=== PATIENT | male | born 1945 | race Caucasian/White ===

== ENCOUNTER → 2019-12-30 14:57 | Outpatient (BNVA) | payer MEDICARE, MEDICAID, SELFPAY | PROVIDERS: Family Provider Nurse Practitioner Family; PCP Nurse Practitioner Family; Visit Provider Nurse Practitioner Family | DX: I10 Essential (primary) hypertension (principal); E78.2 Mixed hyperlipidemia; E11.9 Type 2 diabetes mellitus without complications; R41.3 Other amnesia | CPT/HCPCS: 80048; 82550; 83036; 84460 ==

== ENCOUNTER 2020-02-03 10:55 | Outpatient (CLI) | payer MEDICARE, MEDICAID, SELFPAY ==
--- NOTE | 2020-02-03 11:27 | USCV_ITS ---
Triston Evans Age: 74 Gender: M : 1945 Exam Date: 02/03/2020 11:32 Ordering Phys: Eulalia Murray TERMINAL COMPUTER OPERATOR-C TERMINAL COMPUTER OPERATOR Technologist: Pam Mann [place] [facility] [place]: PAIN IN RT FOOT RIGHT LEFT Brachial 172.00 mmHg Brachial 173.00 mmHg Pressure (mmHg) Waveform Pressure (mmHg) Waveform 127.00 Above Knee 22.00 Below Knee 0.00 GERIATRICIAN 74.00 DPA 0.43 Ankle/Brachial Index 14.00 Pre-Exercise Toe Pressure 0.08 Pre-Exercise Toe/Brachial Index FINDINGS Severely diminished resting SHIRA on the right side Markedly diminished resting TBI on the right side No flow signals in the posterior artery PVR waveforms showing low amplitude delayed peaking waves at the below-knee and ankle levels CONCLUSIONS Features of severe peripheral artery disease with total occlusion of the posterior tibial artery on the right side. Markedly diminished flow into the right big toe Dr Mariia Martinez MD [facility] (Electronically Signed) Final Date: 03 February 2020 13:47 S
--- NOTE | 2020-02-03 12:16 | USCV_ITS ---
Triston Evans Age: 74 Gender: M : 1945 Exam Date: 02/03/2020 12:16 Ordering Phys: Mariia Martinez MD Technologist: [place] [facility] [place]: [place]IN IN RIGHT FOOT Risk Factors: Previous Vascular Surgery: RIGHT LEFT Waveform Velocity (cm/s) Velocity (cm/s) Waveform Triphasic 68.8 Iliac Prox Triphasic Iliac Mid 79.4 Triphasic 73.1 Iliac Distal Triphasic 44.8 PURCHASING SUPERVISOR Triphasic 48.7 SFA Prox Monophasic 45.3 SFA Mid Monophasic 19.5 SFA Dist Monophasic 18.4 DPA FINDINGS Moderate diffuse plaques in the iliac and femoral artery. Sluggish flow in the distal superficial femoral artery No Doppler flow signals in the popliteal and posterior tibial artery Continues low velocity waveform in the dorsalis pedis artery CONCLUSIONS Features of total occlusion of the popliteal and posterior tibial artery on the right side. Features of collateral filling of the dorsalis pedis artery on the right side Moderate diffuse plaques in the iliac and femoral artery Dr. Amor was informed about this finding Dr Mariia Martinez MD [facility] (Electronically Signed) Final Date: 03 February 2020 13:42 S
== END 2020-02-03 10:56 | disposition home or self-care (01) ==
PROVIDERS: Family Provider Nurse Practitioner Family; PCP Nurse Practitioner Family; Visit Provider Nurse Practitioner Family
DX: I70.291 Other atherosclerosis of native arteries of extremities, right leg (principal); M79.671 Pain in right foot; I70.8 Atherosclerosis of other arteries
CPT/HCPCS: 93922; 93923; 93926

== ENCOUNTER 2020-02-03 12:30 | Inpatient (IN) | payer MEDICARE, MEDICAID, SELFPAY ==
[2020-02-03] VITALS (10 sets, daily range): BP systolic 139–176; BP diastolic 82–100; PULSE 75–104; RESP 17–19; TEMP 36.6–36.7; O2SAT 96–100; BMI 26.6
--- NOTE | 2020-02-03 12:44 | ED_ITS ---
Entered by Allison Castellanos, acting as scribe for Matthew Amor DO HPI - Extremity Problem General: Chief complaint: Extremity Problem,Nontraumatic Stated complaint: r lower extremity aterial occulusion per dr martinez Time Seen by Provider: 02/03/20 13:01 Source: patient Mode of arrival: ambulatory Limitations: physical limitation (walking due to pain) History of Present Illness: HPI Narrative: 84-year-old male presents emergency room with complaint of a painful cold right lower leg. He has had this for several weeks to months now is worse with activity better with rest now is just become continuously painful. He was sent by his nurse practitioner to [facility] [place] a arterial Doppler this showed occlusion of the popliteal and tibial arteries and he was referred to the emergency room. MD Complaint: extremity pain (R foot- redness and tenderness) Onset (ago): month(s) (2 months ago) Pain Consistency: constant Location: right Associated symptoms: Deny chest pain, fever(s) or rash Review of Systems Const: Denies: fever, chills, body aches, change in appetite, fatigue or malaise ENMT: Denies: throat pain, ear pain, nasal discharge or nasal congestion Card: Reports: leg pain with exertion; Denies: chest pain, edema, shortness of breath on exertion or shortness of breath when lying down Resp: Denies: shortness of breath, productive cough or non-productive cough GI: Denies: abdominal pain, nausea, vomiting, vomiting blood, coffee grounds in vomit, diarrhea, constipation, bloating, blood in stool or black tarry stool : Denies: flank pain, painful urination, urinary frequency or urinary urgency Skin/Breast: Denies: rash or itching PFS ED PFSH: Medical History HTN (hypertension), benign Hyperlipemia, mixed Peripheral arterial disease Tobacco abuse, in remission Type 2 diabetes mellitus, without long-term current use of insulin Surgical History History of heart artery stent Social History Smoking and tobacco status: never smoked Current occupation: disabled Physical Exam Const: COMMON NORMALS: no apparent distress GENERAL APPEARANCE: cooperative and comfortable ORIENTATION/CONSCIOUSNESS: Yes awake, Yes oriented to person, Yes oriented to place and Yes oriented to time HENMT: COMMON NORMALS: normocephalic, head/scalp atraumatic, hearing grossly normal bilaterally, external ears normal, EAC's normal, TM's normal bilaterally, nasal mucous membranes and turbinates normal, moist oral mucous membranes and oropharynx normal HEAD & SCALP: normocephalic and atraumatic NOSE: nasal mucous membranes and turbinates normal EXTERNAL EAR: Yes external ears normal EXTERNAL AUDITORY CANAL: EAC's normal TYMPANIC MEMBRANE: TM's normal bilaterally Eye: COMMON NORMALS: PERRL, EOMs intact bilaterally, conjunctivae normal and no scleral icterus CONJUNCTIVA: Yes conjunctivae normal PUPIL: Yes PERRL Neck/C-Spine: COMMON NORMALS: full ROM, no lymphadenopathy, supple and no JVD Lymph: LYMPHATIC: no lymphadenopathy noted and no lymphedema noted Resp: COMMON NORMALS: normal respiratory effort, no retractions, no use of accessory muscles and clear to auscultation bilaterally AUSCULTATION: clear to auscultation bilaterally Cardio: COMMON NORMALS: no JVD, regular rate, regular rhythm and no murmurs RATE: regular rate RHYTHM: regular rhythm GI: COMMON NORMALS: soft to palpation and no hepatosplenomegaly AUSCULT ATION: Yes normoactive bowel sounds PALPATION: Yes soft, No tender, No guarding and Yes no hepatosplenomegaly Extremity: OTHER: No palpable dorsalis pedis pulse or posterior tibialis pulse on the right foot it is erythematous extremely tender to the touch with mild calf pain as well there is poor capillary refill. Neuro: SENSORIUM/ORIENTATION: Yes oriented to person, Yes oriented to place and Yes oriented to time Skin: COMMON NORMALS: no rashes or lesions noted GENERAL SKIN EXAM: no rashes or lesions noted Course ED course: Lizy with Dr. Ureña of the hospitalist. We will go ahead and heparinize him admit him to the hospital initially patient did not want to stay Dr. Terence Kahn suggested that he be referred to [place] because this may be quite complicated patient refuses. However he did consent to staying here he would prefer to have Dr. Pratt and Dr. Bowie evaluated. Admit to the hospitalist consult Terence Vital Signs: Vital signs: Vital Signs Temperature 97.9 F 02/03/20 12:36 Pulse Rate 88 02/03/20 16:58 Respiratory Rate 18 02/03/20 16:58 Blood Pressure 155/93 02/03/20 16:58 Pulse Oximetry 99 02/03/20 16:58 MDM - Extremity (Nontraumatic) Lab Data: Labs: Lab Results 02/03/20 02/03/20 02/03/20 Range/Units 14:08 14:08 14:08 WBC 11.5 H (4.0-10.0) 10^3/ uL RBC 4.86 (4.1-5.3) 10^6/u L Hgb 14.3 (11.7-16.6) g/dL Hct 42.2 (42.0-52.0) % MCV 86.8 (80-94) fL MCH 29.4 (28.0-34.0) pg MCHC 33.9 (30.0-36.0) g/dL RDW 12.4 (12.1-15.1) % Plt Count 299 (130-400) 10^3/c mm MPV 10.5 H (7.4-10.4) fL Neut % (Auto) 69.8 % Lymph % (Auto) 18.1 % Kings % (Auto) 9.8 % Eos % (Auto) 1.3 % Baso % (Auto) 0.7 % Neut # (Auto) 8.0 H (1.8-7.7) 10^3/u L Lymph # (Auto) 2.1 (0.8-4.8) 10^3/u L Kings # (Auto) 1.1 H (0.2-0.9) 10^3/u L Eos # (Auto) 0.2 (0.0-0.8) 10^3/u L Baso # (Auto) 0.1 (0.0-0.1) 10^3/u L Nucleated RBC % (a uto) 0 % Nucleated RBCs # 0.0 /100WBC PT 13.80 H (10.5-13.3) SECO NDS INR 1.03 (0.8-1.2) APTT 27.4 (23.9-36.7) SECO NDS Sodium 139 (136-145) mmol/L Potassium 4.7 (3.5-5.1) mmol/L Chloride 98 (98-107) mmol/L Carbon Dioxide 29 (22-29) mmol/L Anion Gap 16.7 (5-19) BUN 15 (8-23) mg/dL Creatinine 0.8 (0.7-1.2) mg/dL Glucose 128 H (65-115) mg/dL Calcium 9.9 (8.5-10.5) mg/dL Total Bilirubin 0.5 (0.15-1.2) mg/dL AST 15 (0-40) U/L ALT 9 (0-41) U/L Alkaline Phosphata se 122 (40-130) IU/L Creatine Kinase 25 L (39-308) U/L Total Protein 7.4 (6.6-8.7) g/dL Albumin 4.4 (3.5-5.2) g/dL Globulin 3.0 (1.3-4.6) g/dL Imaging Data^: US: Radiologist's impression: [place] [address] Ultrasound Report Signed Patient: Moreno Evans #: [id number] : 1945cct#:[id number] Age/Sex: 74 / MADM Date: 02/03/20 Loc: RADRoom/Bed: Attending Dr: Eulalia Murray PROVIDER RELATIONS COORDINATOR Ordering Provider/Ordering MD: Mariia Martinez MD Date of Service: 02/03/20 Procedure(s): [place] [address] Accession Number(s): [id number] Report Number: [id number] Triston Evans Age: 74 Gender: M : 1945 Exam Date: 02/03/2020 12:16 Ordering Phys: Mariia Martinez MD Technologist: Exam Location: [facility] [place] Indication: PAIN IN RIGHT FOOT Risk Factors: Previous Vascular Surgery: RIGHT LEFT Waveform Velocity (cm/s) Velocity (cm/s) Waveform Triphasic 68.8 Iliac Prox Triphasic Iliac Mid 79.4 Triphasic 73.1 Iliac Distal Triphasic 44.8 FIRE BOSS Triphasic 48.7 SFA Prox Monophasic 45.3 SFA Mid Monophasic 19.5 SFA Dist Monophasic 18.4 DPA FINDINGS Moderate diffuse plaques in the iliac and femoral artery. Sluggish flow in the distal superficial femoral artery No Doppler flow signals in the popliteal and posterior tibial artery Continues low velocity waveform in the dorsalis pedis artery CONCLUSIONS Features of total occlusion of the popliteal and posterior tibial artery on the right side. Features of collateral filling of the dorsalis pedis artery on the right side Moderate diffuse plaques in the iliac and femoral artery Dr. Amor was informed about this finding Dr Mariia Martinez MD [facility] (Electronically Signed) Final Date: 03 February 2020 13:42 US Vascular: Radiologist's impression: [address] [place] [address] Ultrasound Report Signed Patient: Moreno Evans #: [id number] : 1945cct#:[id number] Age/Sex: 74 / MADM Date: 02/03/20 Loc: RADRoom/Bed: Attending Dr: Eulalia Murray PROVIDER RELATIONS COORDINATOR Ordering Provider/Ordering MD: Eulalia Murray Date of Service: 02/03/20 Procedure(s): [place] [address] Accession Number(s): [id number] Report Number: [id number] Triston Evans Age: 74 Gender: M : 1945 Exam Date: 02/03/2020 11:32 Ordering Phys: Eulalia Murray PROVIDER RELATIONS COORDINATOR Technologist: Pam Mann [place] [facility] [place]: PAIN IN RT FOOT RIGHT LEFT Brachial 172.00 mmHg Brachial 173.00 mmHg Pressure (mmHg) Waveform Pressure (mmHg) Waveform 127.00 Above Knee 22.00 Below Knee 0.00 LEAD MECHANIC 74.00 DPA 0.43 Ankle/Brachial Index 14.00 Pre-Exercise Toe Pressure 0.08 Pre-Exercise Toe/Brachial Index FINDINGS Severely diminished resting SHIRA on the right side Markedly diminished resting TBI on the right side No flow signals in the posterior artery PVR waveforms showing low amplitude delayed peaking waves at the below-knee and ankle levels CONCLUSIONS Features of severe peripheral artery disease with total occlusion of the posterior tibial artery on the right side. Markedly diminished flow into the right big toe Dr Mariia Martinez MD [facility] (Electronically Signed) Final Date: 03 February 2020 13:47 S Discharge Plan Discharge Patient Disposition: Admitted As Inpatient Admit Provider: Eliseo Dyer Clinical Impression: Critical ischemia of lower extremity, Peripheral arterial disease, History of heart artery stent, Type 2 diabetes mellitus, without long-term current use of insulin, HTN (hypertension), benign, Hyperlipemia, mixed, CAD (coronary artery disease) Condition: Stable Interventions: ED Discharge Assessment Last Done: 02/03/20 16:58 Discharge Date/Time: 02/03/20 17:10 Coding Level of Care Code ED Lamination Inspector for Chg Fwd The documentation recorded by the Emanuel kong Bridget Annette, accurately reflects the service I personally performed and the decisions made by [place] narvaez Curtis L, DO Feb 03, 2020 12:30
--- NOTE | 2020-02-03 13:49 | PC.NURSE ---
In room with pt, Dr Amor at bedside to discuss plan of care. Pt adamant that he is not going to stay in the hospital, that he has animals to take care of. Dr Amor discussing in length with pt the need for admission and angiogram. Pt refusing to stay at this time.
[2020-02-03 14:20] LABS: Basophils # 0.1 10^3/uL (0.0-0.1); Basophils % 0.7 %; Eosinophils # 0.2 10^3/uL (0.0-0.8); Eosinophils % 1.3 %; Hematocrit 42.2 % (42.0-52.0); Hemoglobin 14.3 g/dL (11.7-16.6); Lymphocytes # 2.1 10^3/uL (0.8-4.8); Lymphocytes % 18.1 %; Mean Corpuscular HGB Conc 33.9 g/dL (30.0-36.0); Mean Corpuscular Hemoglobin 29.4 pg (28.0-34.0); Mean Corpuscular Volume 86.8 fL (80-94); Mean Platelet Volume 10.5 fL (7.4-10.4); Monocytes # 1.1 10^3/uL (0.2-0.9); Monocytes % 9.8 %; Neutrophils % 69.8 %; Nucleated Red Blood Cells % 0 %; Platelet Count 299 10^3/cmm (130-400); Red Blood Count 4.86 10^6/uL (4.1-5.3); Red Cell Distribution Width 12.4 % (12.1-15.1); White Blood Count 11.5 10^3/uL (4.0-10.0)
[2020-02-03 14:30] LABS: INR 1.03 (0.8-1.2)
[2020-02-03 14:33] LABS: Partial Thromboplastin Time 27.4 SECONDS (23.9-36.7)
[2020-02-03 14:35] LABS: Alanine Aminotransferase 9 U/L (0-41); Albumin Level 4.4 g/dL (3.5-5.2); Alkaline Phosphatase 122 IU/L (40-130); Anion Gap 16.7 (5-19); Aspartate Amino Transferase 15 U/L (0-40); Blood Urea Nitrogen 15 mg/dL (8-23); Calcium 9.9 mg/dL (8.5-10.5); Carbon Dioxide 29 mmol/L (22-29); Chloride 98 mmol/L (98-107); Creatine Phosphokinase 25 U/L (39-308); Glucose 128 mg/dL (65-115); Potassium 4.7 mmol/L (3.5-5.1); Sodium 139 mmol/L (136-145); Total Bilirubin 0.5 mg/dL (0.15-1.2); Total Protein 7.4 g/dL (6.6-8.7)
[2020-02-03] MEDS: sodium chloride 0.9% 500 ML IV (14:41)
[2020-02-03] MEDS: heparin drip 25,000 UNIT/500 ML PREMIX 21.6 UNIT IV (14:42)
[2020-02-03] MEDS: heparin 5,000 unit/mL INJ 1 mL 5000 UNIT IV (14:43)
--- NOTE | 2020-02-03 15:23 | P.HP_ITS ---
Providers/Chief Complaint Primary Care Provider: TAHIR Joshi Chief Complaint: r lower extremity aterial occulusion per dr mendieta History of Present Illness Triston Evans is a very kind 74 year old male with a past medical history of CAD status post stenting x1, non--insulin-dependent type 2 diabetes mellitus, hypertension, hyperlipidemia, peripheral vascular disease who presents to the emergency room due to concerns for acute right lower limb ischemia. During my discussion with patient, he is quite teary, sad, as his recently 3 months ago from complications of smoking and COPD. Patient states that I am an old man, and by myself, I want you to save my leg. Patient states that he is here in the emergency room because he wants us to save his leg, patient states that he has a chronic history of peripheral vascular disease, his right lower extremity has been painful for the past 2 months, he has been told he has severe peripheral vascular disease on that side, he has been ambulating with significant pain, but states that over the past few weeks his right lower extremity specifically the distal phalanges have looked more red, are tender, no warmth, is able to move phalanges, but has loss of sensation on the right foot. Patient states his outpatient physician was treating him for possible ce llulitis, but antibiotics did not improve his symptoms. Patient states that he had a SHIRA studies today, and he was told by his primary care provider to come to the emergency room as he has concerns for acute limb ischemia. Patient states that his diabetes is pretty well controlled, his blood sugars are anywhere between the 150s, no blood sugar in the 500, states that his blood pressures pretty well controlled at home, has a history of CAD status post stenting x1, denies any chest pain, denies any lung disease, no history of smoking, no chest palpitations, no falls, no injuries, no history of strokes, no history of carotid artery disease. No lightheadedness, no dizziness, no focal neurologic deficits Review of Systems Const: Denies: fever, chills, fatigue or malaise Eyes: Denies: change in vision or blurry vision ENMT: Denies: nasal congestion Resp: Denies: shortness of breath, productive cough, non-productive cough or wheezing GI: Denies: abdominal pain, nausea, vomiting, vomiting blood, diarrhea, constipation, blood in stool or black tarry stool : Denies: flank pain, difficulty urinating, painful urination or urinary frequency Musc: Denies: neck pain or back pain Skin/Breast: Denies: rash Neuro: Denies: headache, dizziness or vertigo Psych: Denies: anxiety or depression Endo: Denies: excessive urination or excessive thirst Medications/Allergies Home Medications Medication Instructions Recorded Confirmed Last Taken Type Fish Oil 1 cap PO DAILY 02/03/20 02/03/20 02/02/20 History vitamin E 1 cap PO DAILY 02/03/20 02/03/20 02/02/20 History Allergies Allergy/AdvReac Type Severity Reaction Status Date / Time No Known Allergies Allergy Verified 02/03/20 12:40 Additional Medication Information Additional Medication Information: Lisinopril 30 twice daily Metformin 500 twice daily Metoprolol 50 twice daily Simvastatin 20 p.o. daily Tramadol 50 every 6 as needed PFSH Acute PFSH: Medical History (Updated 02/03/20 @ 15:31 by Eliseo Dyer MD) HTN (hypertension), benign Hyperlipemia, mixed Type 2 diabetes mellitus, without long-term current use of insulin Social History Smoking and tobacco status: never smoked Current occupation: disabled Vitals/I&O/Wt Last Vital Signs Temp 97.9 F 02/03/20 12:36 Pulse 91 02/03/20 14:48 Resp 18 02/03/20 14:48 BP 163/91 02/03/20 14:48 Pulse Ox 99 02/03/20 14:48 Weight last 48 hrs Weight 77.111 kg Physical Exam Const: COMMON NORMALS: no apparent distress and oriented x3 GENERAL APPE ARANCE: cooperative and comfortable HENMT: COMMON NORMALS: normocephalic HEAD & SCALP: normocephalic Eye: COMMON NORMALS: PERRL, EOMs intact bilaterally and no papilledema GENERAL EYE: normal appearance of both eyes PUPIL: Yes PERRL DIRECT OPHTHALMOSCOPY: Yes no papilledema Neck/C-Spine: COMMON NORMALS: full ROM, no lymphadenopathy, no JVD and thyroid normal THYROID: thyroid normal Lymph: LYMPHATIC: no lymphadenopathy noted Resp: COMMON NORMALS: normal respiratory effort, no retractions, no use of accessory muscles and clear to auscultation bilaterally AUSCULTATION: clear to auscultation bilaterally Cardio: COMMON NORMALS: no JVD, regular rate, regular rhythm, S1 normal heart sound, S2 normal heart sound, no gallops, no clicks and no murmurs RATE: regular rate RHYTHM: regular rhythm HEART SOUNDS: S1 normal and S2 normal GI: COMMON NORMALS: normal to inspection, nondistended, normoactive bowel sounds, soft to palpation, non-tender and no hepatosplenomegaly PALPATION: Yes soft and Yes no hepatosplenomegaly Extremity: COMMON NORMALS: normal to inspection and full ROM OTHER: Left lower extremity: Distal phalanges, red, erythematous, tender, no DP PT pulses palpable, loss of sensation of foot, pain with range of motion, poor capillary r efill Right lower extremity: Minimally palpable DP PT pulses, good sensation, no pain with range of motion, good capillary refill Neuro: COMMON NORMALS: oriented x3, CN's II-XII intact bilaterally, moves all extremities and no focal motor deficits Psych: COMMON NORMALS: mental status grossly normal, thought process normal and cooperative THOUGHT PROCESS: normal thought process Data : 02/03/20 14:08 02/03/20 14:08 A&P Assessment and plan (1) Critical ischemia of lower extremity: -Acute limb ischemia left lower extremity Plan: -Patient is kept n.p.o. -Heparin bolus, heparin drip -On statin -Cardiology has been consulted for angiographic intervention Status: Acute Code(s): I99.8 - Other disorder of circulatory system (2) CAD (coronary artery disease): Status post stenting x1 Status: Acute Code(s): I25.10 - Atherosclerotic heart disease of [place] coronary artery without angina pectoris (3) Hyperlipemia, mixed: Will check lipid panel, continue statin Status: Chronic Code(s): E78.2 - Mixed hyperlipidemia (4) Type 2 diabetes mellitus, without long-term current use of insulin: We will check hemoglobin A1c, low-dose sliding scale Status: Chronic Code(s): E11.9 - Type 2 diabetes mellitus without complications (5) HTN (hypertension), benign: Status: Chronic Code(s): I10 - Essential (primary) hypertension Attestations Medical Necessity Statement*: Patient requires hospitalization, inpatient, greater than 2 minutes, acute ischemia of left lower extremity Coding Level of Care Code Acute Admissions Director for [facility] Fwd Diagnoses Critical ischemia of lower extremity I99.8 CAD (coronary artery disease) I25.10 Hyperlipemia, mixed E78.2 Type 2 diabetes mellitus, without long-term current use of insulin E11.9 HTN (hypertension), benign I10
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
--- NOTE | 2020-02-03 16:42 | PC.NURSE ---
Dr Pratt evaluated pt at bedside. Per Dr Pratt, pt allowed to eat diet at this time.
[2020-02-03 18:03] LABS: Glucose Point of Care 118 mg/dL (70-110)
[2020-02-03] MEDS: metoprolol tartrate 50 mg Tablet PO (18:27)
[2020-02-03] MEDS: lisinopril 20 mg Tablet PO (18:27)
[2020-02-03] MEDS: sodium chloride 0.9% 1,000 ML 75 ML IV (18:27)
--- NOTE | 2020-02-03 19:50 | PC.NURSE ---
Bilateral feet Dopplered, pulses marked X2
[2020-02-03 20:15] LABS: Thyroid Stimulating Hormone 1.32 uIU/mL (0.27-4.20)
[2020-02-03 21:17] LABS: Partial Thromboplastin Time 59.7 SECONDS (23.9-36.7)
[2020-02-03 21:24] LABS: Glucose Point of Care 177 mg/dL (70-110)
[2020-02-04] VITALS (29 sets, daily range): BP systolic 117–180; BP diastolic 65–125; PULSE 71–99; RESP 6–23; TEMP 36.6–36.8; O2SAT 76–100
[2020-02-04 03:26] LABS: Basophils # 0.1 10^3/uL (0.0-0.1); Basophils % 0.5 %; Eosinophils # 0.2 10^3/uL (0.0-0.8); Eosinophils % 1.8 %; Hematocrit 38.3 % (42.0-52.0); Hemoglobin 13.1 g/dL (11.7-16.6); Lymphocytes # 2.2 10^3/uL (0.8-4.8); Lymphocytes % 21.2 %; Mean Corpuscular HGB Conc 34.2 g/dL (30.0-36.0); Mean Corpuscular Hemoglobin 29.6 pg (28.0-34.0); Mean Corpuscular Volume 86.5 fL (80-94); Mean Platelet Volume 10.9 fL (7.4-10.4); Monocytes # 1.1 10^3/uL (0.2-0.9); Monocytes % 10.3 %; Neutrophils # 6.7 10^3/uL (1.8-7.7); Nucleated Red Blood Cells % 0 %; Platelet Count 241 10^3/cmm (130-400); Red Blood Count 4.43 10^6/uL (4.1-5.3); Red Cell Distribution Width 12.3 % (12.1-15.1); White Blood Count 10.2 10^3/uL (4.0-10.0)
[2020-02-04 03:33] LABS: Alanine Aminotransferase 6 U/L (0-41); Albumin Level 3.5 g/dL (3.5-5.2); Alkaline Phosphatase 96 IU/L (40-130); Anion Gap 16.1 (5-19); Aspartate Amino Transferase 12 U/L (0-40); Blood Urea Nitrogen 13 mg/dL (8-23); Calcium 9.1 mg/dL (8.5-10.5); Carbon Dioxide 25 mmol/L (22-29); Chloride 100 mmol/L (98-107); Globulin 2.9 g/dL (1.3-4.6); Glucose 136 mg/dL (65-115); Magnesium 1.9 mg/dL (1.7-2.3); Osmolality Calculated 282 mOsm/kg (285-295); Phosphorus 4.1 mg/dL (2.5-4.5); Potassium 4.1 mmol/L (3.5-5.1); Sodium 137 mmol/L (136-145); Total Bilirubin 0.5 mg/dL (0.15-1.2); Total Protein 6.4 g/dL (6.6-8.7)
[2020-02-04 03:34] LABS: Chol HDL Ratio 3.57 mg/dL (1.0-5.00); Cholesterol 132 mg/dL (0-200); HDL Cholesterol 37 mg/dL (60-100); LDL Cholesterol Calculated 70 mg/dL (50-129); LDL HDL Ratio 1.89 RATIO (0.00-3.22); Triglycerides 127 mg/dL (0-150)
[2020-02-04 03:43] LABS: Estmated Average Glucose 117; Hemoglobin A1C 5.7 % (4.0-6.0)
[2020-02-04 04:02] LABS: Partial Thromboplastin Time 71.6 SECONDS (23.9-36.7)
[2020-02-04 04:49] LABS: INR 1.16 (0.8-1.2)
[2020-02-04 06:42] LABS: Glucose Point of Care 108 mg/dL (70-110)
--- NOTE | 2020-02-04 06:48 | P.PN_ITS ---
Subjective Subjective: Interval history: Triston has had an uneventful night. He remains on heparin. The redness, pain and mild swelling of his leg has decreased significantly. His right leg is warm today. He is slightly confused and has asked me 6 or 7 times from last night till this morning when were going to do the procedure. Medications: Reviewed: Yes Vitals/I&O/Wt Last Vital Signs Temp 98.3 F 02/04/20 04:00 Pulse 80 02/04/20 04:00 Resp 17 02/04/20 04:00 BP 180/71 02/04/20 04:00 Pulse Ox 96 02/04/20 04:00 02/03/20 02/03/20 02/04/20 14:59 22:59 06:59 Intake Total 500 / 500 Output Total 325 / 325 350 / 675 Balance 175 / 175 -350 / -175 Weight last 48 hrs Weight 170 lb Physical Exam Narrative: EXAM NARRATIVE: GENERAL: In general he is comfortable HEENT: Exam within normal limits. [] NECK: Supple without jugular vein distention. The carotid upstroke is normal without bruits. BACK: Exam normal. LUNGS: Clear. HEART: Regular rate and rhythm. ABDOMEN: Benign without organomegaly or tenderness. EXTREMITIES: No edema. NEUROLOGIC: Exam normal. SKIN: Unremarkable. The right leg is warm. No edema. The redness noted yester day has significantly diminished. Data : 02/04/20 03:00 02/04/20 03:00 Micro: Microbiology 02/03/20 17:30 Blood Culture - Preliminary Blood SPECIMEN COLLECTED 02/03/20 14:08 Blood Culture - Preliminary Blood SPECIMEN COLLECTED A&P Assessment and plan (1) History of heart artery stent: Status: Acute Code(s): Z95.5 - Presence of coronary angioplasty implant and graft (2) Peripheral arterial disease: Status: Acute Code(s): I73.9 - Peripheral vascular disease, unspecified (3) Critical ischemia of lower extremity: Status: Acute Code(s): I99.8 - Other disorder of circulatory system (4) CAD (coronary artery disease): Status: Acute Code(s): I25.10 - Atherosclerotic heart disease of [place] coronary artery without angina pectoris (5) Hyperlipemia, mixed: Status: Chronic Code(s): E78.2 - Mixed hyperlipidemia (6) Type 2 diabetes mellitus, without long-term current use of insulin: Status: Chronic Code(s): E11.9 - Type 2 diabetes mellitus without complications (7) HTN (hypertension), benign: Status: Chronic Code(s): I10 - Essential (primary) hypertension Additional A&P Information Heparin has improved the situation. We will stop the heparin at noon and perform lower extremity angiography around 1:00 this afternoon. I made him n.p.o. after breakfast this morning. Attestations Medical Necessity Statement*: Not applicable Coding Level of Care Code Established Pt Acute Typing Teacher for g Fwd Patient Type Established History Detailed Exam Detailed Medical Decision Making Moderate Complexity Diagnoses History of heart artery stent Z95.5 Peripheral arterial disease I73.9 Critical ischemia of lower extremity I99.8 CAD (coronary artery disease) I25.10 Hyperlipemia, mixed E78.2 Type 2 diabetes mellitus, without long-term current use of insulin E11.9 HTN (hypertension), benign I10
[2020-02-04] MEDS: atorvastatin 40 mg Tablet 80 MG PO (09:39)
[2020-02-04] MEDS: omega-3 fatty acids 1,000 mg Capsule 1000 MG PO (09:39)
[2020-02-04] MEDS: sodium chloride 0.9% 1,000 ML 50 ML IV (09:40)
[2020-02-04] MEDS: metoprolol tartrate 50 mg Tablet PO ×2 (09:40→18:38)
[2020-02-04] MEDS: lisinopril 20 mg Tablet PO ×2 (09:40→18:39)
[2020-02-04 09:51] LABS: Partial Thromboplastin Time 72.3 SECONDS (23.9-36.7)
[2020-02-04] MEDS: LORazepam 2 mg/mL INJ 1 mL 0.5 MG IVP ×2 (10:46→22:40)
[2020-02-04] MEDS: diphenhydrAMINE 50 mg Capsule PO (11:31)
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
--- NOTE | 2020-02-04 14:30 | SUR.PHASEI ---
RECOVERY NOTE Patient to CPRU room 4. Awaiting bed availability. Patient condition stable- See assessments per flowsheets.
--- NOTE | 2020-02-04 15:00 | SUR.PHASEI ---
TRANSFER Dr Samano/Dr Pratt in to discuss findings of the exam. Discussed need for surgery. Patient agreeable- patient transferred to ops for holding while awaiting surgical procedure. Report to Johnna KEENAN.
--- NOTE | 2020-02-04 15:09 | P.CONIM_ITS ---
Providers/Reason For Consult Consulting Physican/Specialty*: Jamir Reason for Consult*: Ischemia right lower extremity with thrombus burden right popliteal artery, status post percutaneous intervention with clot aspiration and angioplasty Requesting Physcian: Dr. Pratt Attending Physician: Eliseo Dyer MD Primary Care Provider: TAHIR Joshi History of Present Illness History of Present Illness Triston Evans is a 74 year old male who is just completed percutaneous angiography with intervention to include PTCA and penumbra thrombus aspiration from the right mid and distal SFA and popliteal region by Dr. Pratt. There was substantial thrombus burden that cannot be completely relieved to the percutaneous device and Dr. Pratt has asked for our considerations for surgical thrombectomy for what he feels is still a substantial amount of thrombus. Patient is in the recovery area of the cardiac Steam Pan Sponger. His biggest complaint is left groin pain where there is a left femoral sheath still in position. He does appear to be a bit confused and has received some sedative. Dr. Pratt does have some concerns of perhaps progressing dementia. I do note upon review of the patient's primary care provider visits dating back to December that he initially presented with a granddaughter who was concerned about the patient developing progressive memory loss. He has recently lost his about 3 months ago and does appear to be having more confusion as well as some depression. He is complained of right lower extremity pain for the past 2 months, more progressive recently. He has ahistory for coronary artery disease and status post coronary stenting. There are no immediate family members available. There is no one listed in his record as having power of transactional attorney. Dr. Pratt and I feel that this should be an expedited procedure, and after discussion with Mr. Evans, he has given verbal agreement. Review of Systems Card: Reports: leg pain with exertion (Progressive right lower extremity pain, mostly involving the foot for the past 2 months) Resp: Denies: shortness of breath GI: Denies: abdominal pain, nausea or vomiting Neuro: Denies: headache Psych: Reports: depression Meds/Allergies Home Medications and Allergies Home Medications Medication Instructions Recorded Confirmed Type lisinopril 30 mg tablet 30 mg PO BID tab 12/30/19 02/03/20 History metformin 500 mg tablet 500 mg PO BID 12/30/19 02/03/20 History metoprolol tartrate 50 mg tablet 50 mg PO BID 12/30/19 02/03/20 History simvastatin 20 mg tablet 20 mg PO QDAY 12/30/19 02/03/20 History Fish Oil 1 cap PO DAILY 02/03/20 02/03/20 History vitamin E 1 cap PO DAILY 02/03/20 02/03/20 History Allergies Allergy/AdvReac Type Severity Reaction Status Date / Time No Known Allergies Allergy Verified 02/03/20 12:40 Current Medications Current Medications Generic Name Dose Route Start Last Admin Trade Name Freq PRN Reason Stop Dose Admin Atorvastatin Calcium 80 mg 02/04/20 09:00 02/04/20 09:39 Lipitor PO 80 mg DAILY CASSIE Administration Heparin Sodium/Sodium Chloride 25,000 unit in 500 mls @ 0 mls/hr 02/03/20 13:45 02/04/20 10:03 Heparin Drip IV 14.27 unit/kg/hr .Q0M CASSIE 22 mls/hr Titration Protocol Per Protocol Sodium Chloride 1,000 mls @ 75 mls/hr 02/03/20 17:29 02/03/20 18:27 Sodium Chloride 0.9% IV 75 mls/hr .[id number] CASSIE Administration Sodium Chloride 1,000 mls @ 50 mls/hr 02/04/20 06:47 02/04/20 09:40 Sodium Chloride 0.9% IV 02/05/20 02:46 50 mls/hr .Q20H ONE Administration Insulin Aspart 0 unit 02/03/20 18:00 02/04/20 12:23 Novolog SUBCUT Not Given TIDWM CASSIE Protocol Lisinopril 20 mg 02/03/20 18:00 02/04/20 09:40 Prinivil PO 20 mg BID CASSIE Administration Lorazepam 0.5 mg 02/04/20 10:19 02/04/20 10:46 Ativan IVP 0.5 mg Q12H PRN Administration ANXIETY Metoprolol Tartrate 50 mg 02/03/20 18:00 02/04/20 09:40 Lopressor PO 50 mg BID CASSIE Administration PFSH Acute PFSH: Medical History HTN (hypertension), benign Hyperlipemia, mixed Peripheral arterial disease Tobacco abuse, in remission Type 2 diabetes mellitus, without long-term current use of insulin Surgical History History of heart artery stent Social History Smoking and tobacco status: never smoked Current occupation: disabled Vitals/I&O/Wt Last Vital Signs Temp 97.8 F 02/04/20 08:00 Pulse 99 02/04/20 11:55 Resp 16 02/04/20 11:55 BP 169/73 02/04/20 11:55 Pulse Ox 94 02/04/20 11:55 02/04/20 02/04/20 02/04/20 06:59 14:59 22:59 Intake Total 657.96 / 657.96 Output Total 350 / 675 300 / 300 Balance -350 / -175 357.96 / 357.96 Weight last 48 hrs Weight 170 lb Physical Exam Resp: COMMON NORMALS: clear to auscultation bilaterally AUSCULTATION: clear to auscultation bilaterally Cardio: COMMON NORMALS: regular rhythm, S1 normal heart sound, no murmurs and no rub JUGULAR VENOUS DISTENTION: no JVD RHYTHM: regular rhythm HEART SOUNDS: S1 normal Extremity: OTHER: There is a sheath in place in his left groin. He has a 1+ palpable right femoral pulse. I cannot palpate a pulse from the popliteal region distally on the right side. However, his skin is warm down to the midfoot on the right side. There is no petechia or ulcerations. Psych: MEMORY/COGNITION: Yes memory grossly impaired (Appears to be having some short-term deficits) Impared memory type(s): short term and Yes cognition grossly intact Data Micro: Micro: Microbiology 02/03/20 17:30 Blood Culture - Pr eliminary Blood SPECIMEN [facility] 02/03/20 14:08 Blood Culture - Pr eliminary Blood SPECIMEN [facility] A&P Assessment and plan (1) Critical ischemia of lower extremity: I have reviewed the peripheral angiogram just completed by Dr. Pratt. I have conferred with him in the Steam Pan Sponger. Given the concern for substantial remaining thrombus burden, it does seem to be prudent to attempt surgical extraction of this to a limited groin incision and hopeful Katlin catheter removal. Following this, hopefully with less laden thrombus, medical therapy would be more effective. Myself and Dr. Pratt spoke with Mr. Evans. He appears to be quite responsive to Dr. Pratt's concerns and has agreed to surgical thrombectomy. Status: Acute Code(s): I99.8 - Other disorder of circulatory system Consult Attestations Medical Necessity Statement: Acute ischemia right lower extremity Time Spent in Patient Care: Greater than 35 minutes Coding Level of Care Code New Pt Acute Tumble Tailstock Turret Lathe Operator for Chg Fwd Patient Type New Exam Expanded Problem Focused Medical Decision Making Moderate Complexity Diagnoses Critical ischemia of lower extremity I99.8 Time Spent (min) 35
--- NOTE | 2020-02-04 15:26 | ANES.PREANE2 ---
Pre-Anesthetic Assessment Pre-Anesthetic Assessment: Height/Weight: Height 1.7 m Weight 77.111 kg Temp Pulse Resp BP Pulse Ox 97.8 F 99 16 169/73 94 02/04/20 08:00 02/04/20 11:55 02/04/20 11:55 02/04/20 11:55 02/04/20 11:55 Preop Diagnosis: Thrombus Proposed Procedure: Operation Date: 02/04/20 13:00 Proposed Procedures p Peripheral Diagnostic(Bilateral) - Abran Pratt MD Operation Date: 02/04/20 15:20 Proposed Procedures p Femoral Artery Endarterectomy(Right) - Donaldo Bowie MD Familial anesthetic complications: No Last intake: Intake Last Liquid Date 02/04/20 Last Liquid Time 09:30 Last Solid Date 02/04/20 Last Solid Time 09:30 Social: Social History: Tobacco Exam: Pre-Anes Outpt Exam: alert, oriented x 3, clear to auscultation bilaterally and regular rate & rhythm Airway: Cervical ROM: WNL Pulmonary: Comments: tobacco CV/HEM: CV/HEM: CAD, HTN and PVD Comments: stent Metabolic: Metabolic: DM Neuropsych: Neuropsych: Dementia Anesthetic Plan: ASA status: 3E Anesthesia: General Risk of > 500 ml blood loss (7ml/kg in children): No Other Pertinent Information: Patient poor historian - history gathered from chart review Meds/Allergies Current Medications: Current Medications Generic Name Dose Route Start Last Admin Trade Name Freq PRN Reason Stop Dose Admin Atorvastatin Calci um 80 mg 02/04/20 09:00 02/04/20 09:39 Lipitor PO 80 mg DAILY CASSIE Administration Heparin Sodium/Sod ium Chloride 25,000 unit in 50 0 mls @ 0 mls/hr 02/03/20 13:45 02/04/20 10:03 Heparin Drip IV 14.27 unit/kg/hr .Q0M CASSIE 22 mls/hr Titration Protocol Per Protocol Sodium Chloride 1,000 mls @ 75 ml s/hr 02/03/20 17:29 02/03/20 18:27 Sodium Chloride 0.9% IV 75 mls/hr .[id number] CASSIE Administration Sodium Chloride 1,000 mls @ 50 ml s/hr 02/04/20 06:47 02/04/20 09:40 Sodium Chloride 0.9% IV 02/05/20 02:46 50 mls/hr .Q20H ONE Administration Insulin Aspart 0 unit 02/03/20 18:00 02/04/20 12:23 Novolog SUBCUT Not Given [facility] Protocol Lisinopril 20 mg 02/03/20 18:00 02/04/20 09:40 Prinivil PO 20 mg BID CASSIE Administration Lorazepam 0.5 mg 02/04/20 10:19 02/04/20 10:46 Ativan IVP 0.5 mg Q12H PRN Administration ANXIETY Metoprolol Tartrat e 50 mg 02/03/20 18:00 02/04/20 09:40 Lopressor PO 50 mg BID CASSIE Administration PFSH Anesthesia PFSH: Medical History HTN (hypertension), benign Hyperlipemia, mixed Peripheral arterial disease Tobacco abuse, in remission Type 2 diabetes mellitus, without long-term current use of insulin Surgical History History of heart artery stent Social History Smoking and tobacco status: never smoked Current occupation: disabled Data Anesthesia CBC & Chem 7: 02/04/20 03:00 02/04/20 03:00 Other Labs: Laboratory Results - last 48 hr 02/03/20 02/03/20 02/03/20 14:08 14:08 14:08 WBC 11.5 H RBC 4.86 Hgb 14.3 Hct 42.2 MCV 86.8 MCH 29.4 MCHC 33.9 RDW 12.4 Plt Count 299 MPV 10.5 H Neut % (Auto) 69.8 Lymph % (Auto) 18.1 [place] % (Auto) 9.8 Eos % (Auto) 1.3 Baso % (Auto) 0.7 Neut # (Auto) 8.0 H Lymph # (Auto) 2.1 [place] # (Auto) 1.1 H Eos # (Auto) 0.2 Baso # (Auto) 0.1 Nucleated RBC % (auto) 0 Nucleated RBCs # 0.0 PT 13.80 H INR 1.03 APTT 27.4 Sodium 139 Potassium 4.7 Chloride 98 Carbon Dioxide 29 Anion Gap 16.7 BUN 15 Creatinine 0.8 Glucose 128 H POC Glucose Estimat Average Glucose Hemoglobin A1c Calculated Osmolality Calcium 9.9 Phosphorus Magnesium Total Bilirubin 0.5 AST 15 ALT 9 Alkaline Phosphatase 122 Creatine Kinase 25 L Total Protein 7.4 Albumin 4.4 Globulin 3.0 Triglycerides Cholesterol LDL Cholesterol, Calc HDL Cholesterol LDL/HDL Ratio Cholesterol/HDL Ratio TSH 02/03/20 02/03/20 02/03/20 14:08 18:01 20:46 WBC RBC Hgb Hct MCV MCH MCHC RDW Plt Count MPV Neut % (Auto) Lymph % (Auto) [place] % (Auto) Eos % (Auto) Baso % (Auto) Neut # (Auto) Lymph # (Auto) [place] # (Auto) Eos # (Auto) Baso # (Auto) Nucleated RBC % (auto) Nucleated RBCs # PT INR APTT 59.7 H D Sodium Potassium Chloride Carbon Dioxide Anion Gap BUN Creatinine Glucose POC Glucose 118 Estimat Average Glucose Hemoglobin A1c Calculated Osmolality Calcium Phosphorus Magnesium Total Bilirubin AST ALT Alkaline Phosphatase Creatine Kinase Total Protein Albumin Globulin Triglycerides Cholesterol LDL Cholesterol, Calc HDL Cholesterol LDL/HDL Ratio Cholesterol/HDL Ratio TSH 1.32 02/03/20 02/04/20 02/04/20 21:13 03:00 03:00 WBC RBC Hgb Hct MCV MCH MCHC RDW Plt Count MPV Neut % (Auto) Lymph % (Auto) [place] % (Auto) Eos % (Auto) Baso % (Auto) Neut # (Auto) Lymph # (Auto) [place] # (Auto) Eos # (Auto) Baso # (Auto) Nucleated RBC % (auto) Nucleated RBCs # PT INR APTT 71.6 H Sodium 137 Potassium 4.1 Chloride 100 Carbon Dioxide 25 Anion Gap 16.1 BUN 13 Creatinine 0.8 Glucose 136 H POC Glucose 177 Estimat Average Glucose Hemoglobin A1c Calculated Osmolality 282 L Calcium 9.1 Phosphorus Magnesium Total Bilirubin 0.5 AST 12 ALT 6 Alkaline Phosphatase 96 Creatine Kinase Total Protein 6.4 L Albumin 3.5 Globulin 2.9 Triglycerides Cholesterol LDL Cholesterol, Calc HDL Cholesterol LDL/HDL Ratio Cholesterol/HDL Ratio TSH 02/04/20 02/04/20 02/04/20 03:00 03:00 03:00 WBC 10.2 H RBC 4.43 Hgb 13.1 Hct 38.3 L MCV 86.5 MCH 29.6 MCHC 34.2 RDW 12.3 Plt Count 241 MPV 10.9 H Neut % (Auto) 66.0 Lymph % (Auto) 21.2 [place] % (Auto) 10.3 Eos % (Auto) 1.8 Baso % (Auto) 0.5 Neut # (Auto) 6.7 Lymph # (Auto) 2.2 [place] # (Auto) 1.1 H Eos # (Auto) 0.2 Baso # (Auto) 0.1 Nucleated RBC % (auto) 0 Nucleated RBCs # 0.0 PT 15.20 H INR 1.16 APTT Sodium Potassium Chloride Carbon Dioxide Anion Gap BUN Creatinine Glucose POC Glucose Estimat Average Glucose Hemoglobin A1c Calculated Osmolality Calcium Phosphorus 4.1 Magnesium 1.9 Total Bilirubin AST ALT Alkaline Phosphatase Creatine Kinase Total Protein Albumin Globulin Triglycerides Cholesterol LDL Cholesterol, Calc HDL Cholesterol LDL/HDL Ratio Cholesterol/HDL Ratio TSH 02/04/20 02/04/20 02/04/20 03:00 03:00 06:38 WBC RBC Hgb Hct MCV MCH MCHC RDW Plt Count MPV Neut % (Auto) Lymph % (Auto) [place] % (Auto) Eos % (Auto) Baso % (Auto) Neut # (Auto) Lymph # (Auto) [place] # (Auto) Eos # (Auto) Baso # (Auto) Nucleated RBC % (auto) Nucleated RBCs # PT INR APTT Sodium Potassium Chloride Carbon Dioxide Anion Gap BUN Creatinine Glucose POC Glucose 108 Estimat Average Glucose 117 Hemoglobin A1c 5.7 Calculated Osmolality Calcium Phosphorus Magnesium Total Bilirubin AST ALT Alkaline Phosphatase Creatine Kinase Total Protein Albumin Globulin Triglycerides 127 Cholesterol 132 LDL Cholesterol, Calc 70 HDL Cholesterol 37 L LDL/HDL Ratio 1.89 Cholesterol/HDL Ratio 3.57 TSH 02/04/20 09:25 WBC RBC Hgb Hct MCV MCH MCHC RDW Plt Count MPV Neut % (Auto) Lymph % (Auto) [place] % (Auto) Eos % (Auto) Baso % (Auto) Neut # (Auto) Lymph # (Auto) [place] # (Auto) Eos # (Auto) Baso # (Auto) Nucleated RBC % (auto) Nucleated RBCs # PT INR APTT 72.3 H Sodium Potassium Chloride Carbon Dioxide Anion Gap BUN Creatinine Glucose POC Glucose Estimat Average Glucose Hemoglobin A1c Calculated Osmolality Calcium Phosphorus Magnesium Total Bilirubin AST ALT Alkaline Phosphatase Creatine Kinase Total Protein Albumin Globulin Triglycerides Cholesterol LDL Cholesterol, Calc HDL Cholesterol LDL/HDL Ratio Cholesterol/HDL Ratio TSH Micro: Microbiology 02/03/20 17:30 Blood Culture - Preliminary Blood SPECIMEN COLLECTED 02/03/20 14:08 Blood Culture - Preliminary Blood SPECIMEN COLLECTED Cardiac Studies: No Data to Display
--- NOTE | 2020-02-04 15:35 | P.PN_ITS ---
Subjective Subjective: Interval history: This morning patient is doing well, is a bit anxious about having a peripheral angiogram, no complaints, no fevers, no chills, no nausea, no vomiting, no lightheadedness, no dizziness, is still quite teary this morning, would like something for anxiety Vitals/I&O/Wt Last Vital Signs Temp 97.8 F 02/04/20 08:00 Pulse 82 02/04/20 15:28 Resp 15 02/04/20 15:28 BP 160/80 02/04/20 15:28 Pulse Ox 94 02/04/20 11:55 02/04/20 02/04/20 02/04/20 06:59 14:59 22:59 Intake Total 657.96 / 657.96 Output Total 350 / 675 300 / 300 Balance -350 / -175 357.96 / 357.96 Weight last 48 hrs Weight 77.111 kg Physical Exam Const: COMMON NORMALS: no apparent distress and oriented x3 GENERAL APPEARANCE: cooperative and comfortable HENMT: COMMON NORMALS: normocephalic HEAD & SCALP: normocephalic Eye: COMMON NORMALS: PERRL, EOMs intact bilaterally and no papilledema GENERAL EYE: normal appearance of both eyes PUPIL: Yes PERRL DIRECT OPHTHALMOSCOPY: Yes no papilledema Neck/C-Spine: COMMON NORMALS: full ROM, no lymphadenopathy, no JVD and thyroid normal THYROID: thyroid normal Lymph: LYMPHATIC: no lymphadenopathy noted Resp: COMMON NORMALS: normal respiratory effort, no retractions, no use of acc essory muscles and clear to auscultation bilaterally AUSCULTATION: clear to auscultation bilaterally Cardio: COMMON NORMALS: no JVD, regular rate, regular rhythm, S1 normal heart sound, S2 normal heart sound, no gallops, no clicks and no murmurs RATE: regular rate RHYTHM: regular rhythm HEART SOUNDS: S1 normal and S2 normal Extremity: COMMON NORMALS: normal to inspection and full ROM OTHER: Left lower extremity: Distal phalanges, red, erythematous, tender, no DP PT pulses palpable, loss of sensation of foot, pain with range of motion, poor capillary refill Right lower extremity: Minimally palpable DP PT pulses, good sensation, no pain with range of motion, good capillary refill Neuro: COMMON NORMALS: oriented x3 Data : 02/04/20 03:00 02/04/20 03:00 Micro: Microbiology 02/03/20 17:30 Blood Culture - Preliminary Blood SPECIMEN COLLECTED 02/03/20 14:08 Blood Culture - Preliminary Blood SPECIMEN COLLECTED A&P Assessment and plan (1) Critical ischemia of lower extremity: -Acute limb ischemia left lower extremity Plan: -Patient is kept n.p.o. -We will have a peripheral angiogram by Dr. Pratt this morning -Heparin bolus, heparin drip -On statin Status: Acute Code(s): I99.8 - Other disorder of circulatory system (2) CAD (coronary artery disease): Status post stenting x1 Status: Acute Code(s): I25.10 - Atherosclerotic heart disease of [place] coronary artery without angina pectoris (3) Hyperlipemia, mixed: Will check lipid panel, continue statin Status: Chronic Code(s): E78.2 - Mixed hyperlipidemia (4) Type 2 diabetes mellitus, without long-term current use of insulin: We will check hemoglobin A1c, low-dose sliding scale Status: Chronic Code(s): E11.9 - Type 2 diabetes mellitus without complications (5) HTN (hypertension), benign: Status: Chronic Code(s): I10 - Essential (primary) hypertension (6) Depression: -Patient is feeling sad, has symptoms of depression, after his 's 3 months ago -We will give Ativan as needed -We will speak to the patient about starting a medication to help with anxiety and depression -patient is also having episodes of confusion, which likely is some degree of mild dementia, but also going along with depression and his typically patients have episodes of forgetfulness and confusion Status: Acute Code(s): F32.9 - Major depressive disorder, single episode, unspecified Attestations Medical Necessity Statement*: Patient requires hospitalization due to acute limb ischemia Coding Level of Care Code Acute Confidential Secretary for [facility] Fwjana Diagnoses Critical ischemia of lower extremity I99.8 CAD (coronary artery disease) I25.10 Hyperlipemia, mixed E78.2 Type 2 diabetes mellitus, without long-term current use of insulin E11.9 HTN (hypertension), benign I10 Depression F32.9
[2020-02-04] MEDS: vancomycin 1,000 MG SDV 1000 MG IRRIGATION (16:24)
[2020-02-04] MEDS: heparin, porcine 1,000 unit/mL INJ 10 mL 1000 UNIT HE (16:27)
--- NOTE | 2020-02-04 17:24 | PM.OP ---
Operative Report Date of procedure: February 04, 2020 Pre-op Diagnosis: Thrombus Procedure Done: Right lower extremity [place] catheter thrombectomy Specimens removed/disposition: Fresh and organized thrombus from right lower extremity Surgeon: Donaldo Bowie Anesthesia: General Estimated blood loss (mL): 150 Urine output (mL): 250 Findings: Fresh and organized thrombus recovered Condition: stable Disposition: ICU Brief History: 74-year-old gentleman whom I was consulted on following intervention by Dr. Pratt for ischemia of the right lower extremity. Status post percutaneous thrombectomy by Dr. Pratt with expected continued thrombus burden. Procedure: Verbal consent was obtained from Mr. Evans during conversation with Dr. Pratt and myself. He was taken operating room theater where he underwent general endotracheal anesthesia after being carefully positioned on the OR table. The entire right groin region and right lower extremity was sterilely prepped and draped. Oblique incision was made in the right groin over the right femoral pulse. This was carried down through the subcutaneous tissues utilizing cautery. Once we reached the femoral sheath the common femoral artery was dissected free and controlled proximally and distally. Patient received 5000 is of heparin daily prior to the procedure during his attempt intervention by Dr. Pratt. We gave another 3000 units of heparin once I had control of the vessel. Longitudinal arteriotomy was made and a #4 [place] catheter was then passed several times down the right lower extremity. Initially, it only passed a 35 cm which would be around the knee level. Fresh and organized thrombus was removed with 8 successive passing and eventually we were able to pass the catheter to 70 cm which would be just above the ankle. This was done in a serial fashion until we can no longer recover any thrombus. Backbleeding markedly improved after this was done. We then performed forward bleeding to remove some organized thrombus proximally. There was brisk antegrade flow. The arteriotomy was then closed in a transverse fashion utilizing interrupted 6-0 Prolene suture. Backbleeding was performed followed by reestablishment of antegrade flow. There was a Doppler signal in mid thigh though I cannot get a Doppler signal in either foot at completion of the procedure. This may be related to spasm or temperature. I feel there is no further interventions available at this time, therefore we irrigated the wound and closed multiple layers with 3-0 Vicryl suture. Skin was closed with surgical greg. Sterile dressings were applied. He is awakened extubated and then taken to the ICU once bed is available. There are no immediate family or friends to consult with. Dr. Pratt is not on station at this time. I will confer with him tomorrow. We will continue heparin infusion throughout the night.
--- NOTE | 2020-02-04 17:30 | PC.NURSE ---
RECEIVED FROM OR S/P VASCULAR SURGERY. RLE COLD/BLUE/ UNABLE TO DOPPLER PEDAL PULSE C/O TINGLING/PINS/NEEDLES TO RIGHT LOWER EXTREMITY WILL NOT KEEP LEGS STILL, SHEATH INTACT TO PRESSURE BAG LEFT FEMORAL. PICKING AT THE AIR. SITTER AT BEDSIDE.
--- NOTE | 2020-02-04 17:42 | P.ANESPOST_ITS ---
Inpatient post-anesthesia follow up: Airway intact: Yes Vital signs: Temperature 97.8 F Pulse Rate [Monito r] 75 Pulse Rate 88 Respiratory Rate 15 Blood Pressure [Le ft Arm] 160/80 Blood Pressure 132/65 Pulse Oximetry 100 Oxygen Delivery Me thod Simple Mask Oxygen Flow Rate 10 Fraction of Inspir ed Oxygen Hydration adequate: Yes Nausea and vomiting: No Pain level: 1 Mental status: Baseline Additional Comments: mental status as received from liaison inspection laboratory assistant
--- NOTE | 2020-02-04 18:16 | ECG_ITS ---
Measurements Intervals [place] Rate: 94 P: ME: 0 QRS: -32 QRSD: 96 T: 13 QT: 388 QTc: 486 ATRIAL FIBRILLATION WITH ABERRANT CONDUCTION OR VENTRICULAR PREMATURE COMPLEXES MARKED LEFT AXIS DEVIATION [QRS AXIS < -30] No previous ECG available for comparison Electronically Signed On 02-05-2020 8:23:22 TEMPLATE WORKER by Yady Campos M.D. [id number]
[2020-02-04 18:35] LABS: Glucose Point of Care 118 mg/dL (70-110)
[2020-02-04] MEDS: nitroglycerin 1 gm/inch oint Pkt 1 INCH TOPICAL ×2 (18:38→23:50)
[2020-02-04] MEDS: heparin 5,000 unit/mL INJ 1 mL IV (18:39)
[2020-02-04] MEDS: aspirin 81 mg Chew Tablet PO (18:39)
[2020-02-04] MEDS: heparin drip 25,000 UNIT/500 ML PREMIX 22 UNIT IV (18:48)
[2020-02-04] MEDS: lactated ringers 1,000 ML 100 ML IV (19:11)
[2020-02-04] MEDS: morphine 4 mg/mL SDV 1 mL 2 MG IVP (20:05)
[2020-02-04 21:20] LABS: Glucose Point of Care 121 mg/dL (70-110)
[2020-02-04] MEDS: ceFAZolin 1,000 MG in sodium chloride 0.9% (plus) 50 ML 100 MG IV (22:39)
[2020-02-05] VITALS (23 sets, daily range): BP systolic 91–141; BP diastolic 53–75; PULSE 69–97; RESP 1–24; TEMP 36.6–37.1; O2SAT 89–97
[2020-02-05 01:31] LABS: Partial Thromboplastin Time 193.4 SECONDS (23.9-36.7)
--- NOTE | 2020-02-05 01:32 | PC.NURSE ---
PTT 193.4 received from Radha.
[2020-02-05] MEDS: HYDROcodone-acetaminophen 5-325 mg Tablet 1 TAB PO (04:26)
[2020-02-05 04:38] LABS: Basophils # 0.1 10^3/uL (0.0-0.1); Basophils % 0.5 %; Eosinophils # 0.1 10^3/uL (0.0-0.8); Eosinophils % 1.3 %; Hematocrit 31.1 % (42.0-52.0); Hemoglobin 10.4 g/dL (11.7-16.6); Lymphocytes # 1.7 10^3/uL (0.8-4.8); Lymphocytes % 16.6 %; Mean Corpuscular HGB Conc 33.4 g/dL (30.0-36.0); Mean Corpuscular Hemoglobin 29.1 pg (28.0-34.0); Mean Corpuscular Volume 87.1 fL (80-94); Mean Platelet Volume 10.7 fL (7.4-10.4); Monocytes # 1.2 10^3/uL (0.2-0.9); Monocytes % 11.5 %; Neutrophils # 7.2 10^3/uL (1.8-7.7); Neutrophils % 69.8 %; Nucleated Red Blood Cells % 0 %; Platelet Count 225 10^3/cmm (130-400); Red Blood Count 3.57 10^6/uL (4.1-5.3); Red Cell Distribution Width 12.7 % (12.1-15.1); White Blood Count 10.3 10^3/uL (4.0-10.0)
[2020-02-05 04:54] LABS: Magnesium 1.7 mg/dL (1.7-2.3); Phosphorus 4.1 mg/dL (2.5-4.5)
[2020-02-05 05:53] LABS: Partial Thromboplastin Time 84.8 SECONDS (23.9-36.7)
[2020-02-05] MEDS: nitroglycerin 1 gm/inch oint Pkt 1 INCH TOPICAL ×5 (06:01→23:15)
[2020-02-05] MEDS: ceFAZolin 1,000 MG in sodium chloride 0.9% (plus) 50 ML 100 MG IV ×3 (07:34→23:15)
[2020-02-05 07:45] LABS: Glucose Point of Care 130 mg/dL (70-110)
[2020-02-05] MEDS: pantoprazole DR 40 mg Tablet PO (09:29)
[2020-02-05] MEDS: aspirin 81 mg Chew Tablet PO (09:29)
[2020-02-05] MEDS: metoprolol tartrate 50 mg Tablet PO ×2 (09:29→17:26)
[2020-02-05] MEDS: atorvastatin 40 mg Tablet 80 MG PO (09:29)
[2020-02-05] MEDS: omega-3 fatty acids 1,000 mg Capsule 1000 MG PO (09:29)
[2020-02-05] MEDS: lisinopril 20 mg Tablet PO ×2 (09:29→17:26)
--- NOTE | 2020-02-05 09:33 | PM.PN ---
Subjective Subjective: Interval history: Postop day #1 status post right femoral artery surgical thrombectomy He has been on heparin overnight. Right foot is now warm down to the toes. There is hyperemia of the toes which may be reperfusion or potential for distal embolization, though no petechiae are noted. He has good sensation and can move his foot well. He is not complaining of any discomfort. His left groin sheath remains in place. Vitals/I&O/Wt Last Vital Signs Temp 98.3 F 02/04/20 22:00 Pulse 89 02/05/20 08:00 Resp 18 02/05/20 08:00 BP 101/63 02/05/20 08:00 Pulse Ox 95 02/05/20 08:00 02/04/20 02/05/20 02/05/20 22:59 06:59 14:59 Intake Total 1573.334 / 2231.294 605.55 / 2836.844 300 / 300 Output Total 250 / 550 Balance 1323.334 / 1681.294 605.55 / 2286.844 300 / 300 Weight last 48 hrs Weight 170 lb Physical Exam Extremity: OTHER: Right foot is now warm and there is a intermittent light Doppler signal. Sensation intact. Good range of motion. Urinary Catheter Management^: Abreu: Cath Placed During This Visit: yes Reason for Continuing Indwelling Catheter: Accurate Measurement of Urinary Output in Critically Ill Patients Urinary Catheter Date of Insertion: 02/04/20 Urinary Catheter Time of Insertion: 16:00 Data : 02/05/20 04:17 02/04/20 03:00 Micro: Microbiology 02/03/20 17:30 Blood Culture - Preliminary Blood NEGATIVE TO DATE 02/03/20 14:08 Blood Culture - Preliminary Blood NEGATIVE TO DATE A&P Assessment and plan (1) Critical ischemia of lower extremity: Postop day #1 status post right femoral artery thrombectomy We will discontinue heparin to allow for removal of the left groin sheath later today We will add Plavix 75 mg now and daily. Continue aspirin daily. Amiodarone IV has been switched to p.o. amiodarone due to atrial fibrillation. I have conferred with Dr. Wells from cardiology and with Dr. Dyer from our hospitalist service. We will initiate anticoagulation for A. fib once our sheath has been out at this area is confirmed to be hemostatic. Dr. Dyer has recommended Eliquis. We will change the right groin surgical dressing tomorrow. Status: Acute Code(s): I99.8 - Other disorder of circulatory system Attestations Medical Necessity Statement*: Status post thrombectomy for acute ischemia right lower extremity Time Spent in Patient Care: 16 - 35 minutes Coding Level of Care Code Acute Cost Estimator for Arianna Mcrae Diagnoses Critical ischemia of lower extremity I99.8
[2020-02-05] MEDS: clopidogrel 75 mg Tablet PO (09:36)
[2020-02-05 11:37] LABS: Glucose Point of Care 208 mg/dL (70-110)
[2020-02-05] MEDS: amiodarone 200 mg Tablet 400 MG PO ×2 (11:44→17:26)
--- NOTE | 2020-02-05 12:55 | PC.NURSE ---
pt weaned off ammio gtt and heparin gtts . preparing to remove sheath and possible transfer sitter at bedside
--- NOTE | 2020-02-05 14:29 | PC.NURSE ---
received from icu via bed at 1400.report received.pt is alert and awake.denies pain at present.atrial fib/flutter on monitor.right foot is warm to touch,flushed,and with brisk capillary refill.dopplerable dp and pt pulses noted.left femoral arterial sheath intact to pressurized system.no hematoma noted at site.drsg is dry and intact.right le is warm to touch and with brisk capillary refill.pt has 1:1 sitter present at bedside due to confusion and potential to dislodge lines.awaiting ptt results.
[2020-02-05 14:33] LABS: Partial Thromboplastin Time 45.9 SECONDS (23.9-36.7)
[2020-02-05] MEDS: ketorolac 30 mg/mL INJ 15 MG IVP (14:54)
--- NOTE | 2020-02-05 15:43 | PM.PN ---
Subjective Subjective: Interval history: Denies any pain. Right foot and leg appeared to be warm. He has faint dopplerable anterior and posterior tibial pulse. Medications: Reviewed: Yes Medication Review Details: Lisinopril 30 twice daily Metformin 500 twice daily Metoprolol 50 twice daily Simvastatin 20 p.o. daily Tramadol 50 every 6 as needed Vitals/I&O/Wt Last Vital Signs Temp 98.3 F 02/04/20 22:00 Pulse 93 02/05/20 14:22 Resp 18 02/05/20 14:22 BP 141/75 02/05/20 14:22 Pulse Ox 96 02/05/20 14:22 02/05/20 02/05/20 02/05/20 06:59 14:59 22:59 Intake Total 605.55 / 2836.844 350 / 350 Balance 605.55 / 2286.844 350 / 350 Physical Exam Narrative: EXAM NARRATIVE: GENERAL: Patient is alert, awake and oriented x3. Mild distress NECK: No jugular vein distension. HEENT: No cyanosis. No icterus. No pallor. HEART: Regularly irregular S1 and S2. No murmur, rub or gallop. LUNGS: Clear to auscultate bilaterally. ABDOMEN: Soft, midepigastric tenderness and nondistended. Positive bowel sounds. No guarding, rebound or tenderness. CENTRAL NERVOUS SYSTEM: Grossly nonfocal. EXTREMITIES: Lower extremities with 1+ edema right leg, right foot warm moist pinkish, dopplerable faint posterior and anterior tibial pulse Urinary Catheter Management^: Abreu: Cath Placed During This Visit: yes Reason for Continuing Indwelling Catheter: Accurate Measurement of Urinary Output in Critically Ill Patients Urinary Catheter Date of Insertion: 02/04/20 Urinary Catheter Time of Insertion: 16:00 Data : 02/05/20 04:17 02/04/20 03:00 Micro: Microbiology 02/03/20 17:30 Blood Culture - Preliminary Blood NEGATIVE TO DATE 02/03/20 14:08 Blood Culture - Preliminary Blood NEGATIVE TO DATE A&P Assessment and plan (1) Critical ischemia of lower extremity: Status post thrombectomy of right SFA overall foot and leg is better. Patient has reasonable flow in the right foot through Doppler. Continue anticoagulation once sheath Will be removed with Xarelto Status: Acute Code(s): I99.8 - Other disorder of circulatory system (2) Atrial fibrillation: Patient had got A. fib with RVR last night. We will switch to oral amiodarone. Status: Acute Code(s): I48.91 - Unspecified atrial fibrillation Additional A&P Information Heparin has improved the situation. We will stop the heparin at noon and perform lower extremity angiography around 1:00 this afternoon. I made him n.p.o. after breakfast this morning. Attestations Medical Necessity Statement*: Required continuation hospitalization for above defined care. Coding Level of Care Code Established Pt Acute Feed Handler for g Fwd Patient Type Established History Expanded Problem Focused Exam Expanded Problem Focused Medical Decision Making Moderate Complexity Diagnoses Critical ischemia of lower extremity I99.8 Atrial fibrillation I48.91
--- NOTE | 2020-02-05 16:34 | ANE.PACU2 ---
 Inpatient post-anesthesia follow up: Airway intact: Yes Vital signs: Temperature 97.9 F Pulse Rate [Monito r] 75 Pulse Rate 97 Respiratory Rate 22 Blood Pressure [Le ft Arm] 160/80 Blood Pressure 130/67 Pulse Oximetry 94 Oxygen Delivery Me thod Room Air Oxygen Flow Rate 10 Fraction of Inspir ed Oxygen Hydration adequate: Yes Nausea and vomiting: No Mental status: Baseline
--- NOTE | 2020-02-05 17:08 | P.PN_ITS ---
Subjective Subjective: Interval history: Patient was examined in the intensive care unit this morning, states that he is doing well, has no significant complaints, did have episodes of confusion overnight, although patient denies this, no fevers, no chills, no nausea, vomiting, no lightheadedness, no dizziness, his right lower extremity is flushed and pink, with good DP PT pulses palpable Vitals/I&O/Wt Last Vital Signs Temp 97.9 F 02/05/20 15:52 Pulse 97 02/05/20 15:52 Resp 22 H 02/05/20 15:52 BP 130/67 02/05/20 15:52 Pulse Ox 94 02/05/20 15:52 02/05/20 02/05/20 02/05/20 06:59 14:59 22:59 Intake Total 605.55 / 2836.844 350 / 350 Output Total 650 / 650 Balance 605.55 / 2286.844 350 / 350 -650 / -300 Physical Exam Const: COMMON NORMALS: no apparent distress and oriented x3 HENMT: COMMON NORMALS: normocephalic HEAD & SCALP: normocephalic Neck/C-Spine: COMMON NORMALS: no JVD Resp: COMMON NORMALS: normal respiratory effort, no retractions, no use of accessory muscles and clear to auscultation bilaterally AUSCULTATION: clear to auscultation bilaterally Cardio: COMMON NORMALS: no JVD, regular rate, regular rhythm, S1 normal heart sound and S2 normal heart sound RATE: regular rate RHYTHM: regular rhythm HEART SOUNDS: S1 normal and S2 normal GI: COMMON NORMALS: normal to inspection, nondistended, normoactive bowel sounds, soft to palpation, non-tender, no hepatosplenomegaly, no masses and no bruits PALPATION: Yes soft and Yes no hepatosplenomegaly Extremity: COMMON NORMALS: normal capillary refill, no clubbing, cyanosis or edema, no calf tenderness and no pedal edema NARRATIVE EXTREMITY EXAM: Right lower extremity DP PT pulses dopplerable and palpable Neuro: COMMON NORMALS: oriented x3 Psych: COMMON NORMALS: mental status grossly normal Urinary Catheter Management^: Abreu: Cath Placed During This Visit: yes Reason for Continuing Indwelling Catheter: Accurate Measurement of Urinary Output in Critically Ill Patients Urinary Catheter Date of Insertion: 02/04/20 Urinary Catheter Time of Insertion: 16:00 Data : 02/05/20 04:17 02/04/20 03:00 Micro: Microbiology 02/03/20 17:30 Blood Culture - Preliminary Blood NEGATIVE TO DATE 02/03/20 14:08 Blood Culture - Preliminary Blood NEGATIVE TO DATE A&P Assessment and plan (1) Critical ischemia of lower extremity: -Acute limb ischemia left lower extremity status post right femoral artery surgical thrombectomy due to high clot burden postop day #[address] Bowie, status post percutaneous intervention with clot aspiration angioplasty by Dr. Pratt Plan: -Currently has arterial line in place, will be removed, hold Eliquis until hemostasis -Continue aspirin, Plavix, statin -Moved to cardiac [facility] [place] Status: Acute Code(s): I99.8 - Other disorder of circulatory system (2) CAD (coronary artery disease): Status post stenting x1 Status: Acute Code(s): I25.10 - Atherosclerotic heart disease of [place] coronary artery without angina pectoris (3) Hyperlipemia, mixed: Will check lipid panel, continue statin Status: Chronic Code(s): E78.2 - Mixed hyperlipidemia (4) Type 2 diabetes mellitus, without long-term current use of insulin: We will check hemoglobin A1c, low-dose sliding scale Status: Chronic Code(s): E11.9 - Type 2 diabetes mellitus without complications (5) HTN (hypertension), benign: Status: Chronic Code(s): I10 - Essential (primary) hypertension (6) Depression: -Has episodes of confusion -Likely related to dementia and depression -Start Prozac 20 mg once daily Status: Acute Code(s): F32.9 - Major depressive disorder, single episode, unspecified (7) Atrial fibrillation: -Had episodes of atrial fibrillation -Transition to amiodarone 400 mg p.o. twice daily -Metoprolol 50 mg twice daily -We will start Eliquis 5 mg p.o. twice daily later on this evening -Cardiology is on consult Status: Acute Code(s): I48.91 - Unspecified atrial fibrillation Attestations Medical Necessity Statement*: Patient requires continued hospitalization due to critical ischemia of left lower extremity status post surgical intervention, atrial fibrillation Coding Level of Care Code Acute [employer] [facility] Diagnoses Critical ischemia of lower extremity I99.8 CAD (coronary artery disease) I25.10 Hyperlipemia, mixed E78.2 Type 2 diabetes mellitus, without long-term current use of insulin E11.9 HTN (hypertension), benign I10 Depression F32.9 Atrial fibrillation I48.91
[2020-02-05 17:14] LABS: Glucose Point of Care 136 mg/dL (70-110)
[2020-02-05] MEDS: apixaban 5 mg Tablet PO (18:21)
--- NOTE | 2020-02-05 20:41 | PC.NURSE ---
Patient refused his insulin despite teaching on importance of blood sugar control. Refusal reported to patient's primary nurse. Will continue to monitor.
[2020-02-05 20:56] LABS: Glucose Point of Care 196 mg/dL (70-110)
--- NOTE | 2020-02-05 21:05 | PC.NURSE ---
PT REFUSED INSULIN. DR BOOGIE NOTIFIED.
--- NOTE | 2020-02-05 21:09 | PC.NURSE ---
PRESSURE DRESSINGS TO RIGHT AND LEFT GROIN ARE C/D/I. HEMATOMA FELT ON BOTH RIGHT AND LEFT GROIN. DOPPLER WAS USED TO CHECK PULSE IN RLE. PULSE WAS STRONG 3+. RLE HAS NORMAL SKIN COLOR. WILL CONTINUE TO MONITOR
--- NOTE | 2020-02-05 22:27 | PC.NURSE ---
PT AMBULATED 100 FEET. PT HAS AN UNSTEADY GAIT, BUT DID FAIR WITH A 1 PERSON ASSIST. DRESSINGS WERE STILL INTACT. HEMATOMA TO LEFT SIDE CAN NO LONGER BE FELT. PT STATES THAT THIS IS THE BEST THAT THEIR LEG HAS FELT IN A LONG TIME. DR BOOGIE D/C'D THE 1:1 SITTER. BED ALARM WAS SET A PRECAUTION. WILL CONTINUE TO MONITOR.
[2020-02-06] VITALS: BP 108/58; PULSE 78; RESP 15; TEMP 36.8; O2SAT 93
[2020-02-06 04:00] VITALS: BP 117/53; PULSE 74; RESP 18; TEMP 36.6; O2SAT 90
[2020-02-06 04:55] VITALS: BP 117/53; PULSE 74; RESP 18; TEMP 36.6; O2SAT 90
[2020-02-06 05:33] LABS: Basophils # 0.1 10^3/uL (0.0-0.1); Basophils % 0.4 %; Eosinophils # 0.2 10^3/uL (0.0-0.8); Eosinophils % 1.7 %; Hematocrit 32.6 % (42.0-52.0); Hemoglobin 10.9 g/dL (11.7-16.6); Lymphocytes # 1.8 10^3/uL (0.8-4.8); Lymphocytes % 14.3 %; Mean Corpuscular HGB Conc 33.4 g/dL (30.0-36.0); Mean Corpuscular Hemoglobin 30.8 pg (28.0-34.0); Mean Corpuscular Volume 92.1 fL (80-94); Mean Platelet Volume 10.5 fL (7.4-10.4); Monocytes # 1.5 10^3/uL (0.2-0.9); Monocytes % 11.8 %; Neutrophils # 9.2 10^3/uL (1.8-7.7); Neutrophils % 71.5 %; Nucleated Red Blood Cells % 0 %; Platelet Count 234 10^3/cmm (130-400); Red Blood Count 3.54 10^6/uL (4.1-5.3); Red Cell Distribution Width 12.7 % (12.1-15.1); White Blood Count 12.8 10^3/uL (4.0-10.0)
[2020-02-06 05:51] LABS: Alanine Aminotransferase < 5 U/L (0-41); Albumin Level 3.2 g/dL (3.5-5.2); Alkaline Phosphatase 75 IU/L (40-130); Anion Gap 14.9 (5-19); Aspartate Amino Transferase 12 U/L (0-40); Blood Urea Nitrogen 14 mg/dL (8-23); Calcium 8.9 mg/dL (8.5-10.5); Carbon Dioxide 23 mmol/L (22-29); Chloride 98 mmol/L (98-107); Globulin 2.6 g/dL (1.3-4.6); Glucose 144 mg/dL (65-115); Potassium 3.9 mmol/L (3.5-5.1); Sodium 132 mmol/L (136-145); Total Bilirubin 0.7 mg/dL (0.15-1.2); Total Protein 5.8 g/dL (6.6-8.7)
[2020-02-06] MEDS: nitroglycerin 1 gm/inch oint Pkt 1 INCH TOPICAL (06:00)
[2020-02-06 06:01] LABS: Magnesium 1.8 mg/dL (1.7-2.3); Phosphorus 3.7 mg/dL (2.5-4.5)
[2020-02-06 06:38] LABS: Glucose Point of Care 154 mg/dL (70-110)
[2020-02-06 07:20] VITALS: BP 114/69; PULSE 77; RESP 18; TEMP 36.6; O2SAT 90
[2020-02-06] MEDS: ceFAZolin 1,000 MG in sodium chloride 0.9% (plus) 50 ML 100 MG IV (07:31)
[2020-02-06] MEDS: pantoprazole DR 40 mg Tablet PO (08:37)
[2020-02-06] MEDS: aspirin 81 mg Chew Tablet PO (08:37)
[2020-02-06] MEDS: fluoxetine 20 mg Capsule PO (08:38)
[2020-02-06] MEDS: apixaban 5 mg Tablet PO (08:38)
[2020-02-06] MEDS: clopidogrel 75 mg Tablet PO (08:38)
[2020-02-06] MEDS: atorvastatin 40 mg Tablet PO (08:38)
[2020-02-06] MEDS: amiodarone 200 mg Tablet 400 MG PO (08:39)
--- NOTE | 2020-02-06 09:25 | PC.SOCIAL ---
IMM Update Pg 2 of IMM given and explained to patient who verbalized understanding. Copy provided to patient and original updated.
[2020-02-06] MEDS: metoprolol tartrate 50 mg Tablet PO (10:12)
[2020-02-06] MEDS: lisinopril 20 mg Tablet PO (10:13)
--- NOTE | 2020-02-06 10:55 | PM.PN ---
Subjective Medications: Medication Review Details: Postop day #2 status post thrombectomy right lower extremity. Surgical dressing was changed today. Incision is clean, dry, and intact. No apparent hematoma. He is currently on Eliquis. He has a modest biphasic Doppler signal in the right DP and a light intermittently biphasic signal in the right posterior tibial. He maintains hyperemia of the distal forefoot, which is concerning, though may be reactive hyperemia. We have been utilizing nitroglycerin on the dorsum of the foot. Vitals/I&O/Wt Last Vital Signs Temp 97.8 F 02/06/20 07:20 Pulse 77 02/06/20 07:20 Resp 18 02/06/20 07:20 BP 114/69 02/06/20 07:20 Pulse Ox 90 02/06/20 07:20 02/05/20 02/06/20 02/06/20 21:59 06:59 14:59 Intake Total 240 / 240 Output Total 300 / 300 Balance -60 / -60 Physical Exam Extremity: OTHER: Surgical incisions are clean and dry. Access point from the left groin for prior femoral sheath also is clean and dry. Wounds were cleaned and redressed. Biphasic Doppler dorsalis pedis and lightly biphasic Doppler right posterior tibial signal. Hyperemia of the distal forefoot, without obvious infection. This may be reperfusion associated. This will need to be followed closely. Urinary Catheter Management^: Abreu: Cath Placed During This Visit: yes Reason for Continuing Indwelling Catheter: Accurate Measurement of Urinary Output in Critically Ill Patients Urinary Catheter Date of Insertion: 02/04/20 Urinary Catheter Time of Insertion: 16:00 Data : 02/06/20 04:50 02/06/20 04:50 A&P Assessment and plan (1) Critical ischemia of lower extremity: Postop day #2 status post thrombectomy right lower extremity. He now has dopplerable pedal signals. It is my understanding home health is being arranged at discharge. I do feel long-term care will need to be discussed at some point with any family members which are available, as I feel he is developing progressive cognitive dysfunction upon review of his history and speaking with his close personal friends and neighbors. Status: Acute Code(s): I99.8 - Other disorder of circulatory system (2) Atrial fibrillation: Remains in A. fib, currently on Eliquis. Status: Acute Code(s): I48.91 - Unspecified atrial fibrillation Attestations Medical Necessity Statement*: Status post thrombectomy right lower extremity with acute ischemia Time Spent in Patient Care: 16 - 35 minutes Coding Level of Care Code Acute Appeals Reviewer Veteran for Arianna Mcrae Diagnoses Critical ischemia of lower extremity I99.8 Atrial fibrillation I48.91
[2020-02-06 11:28] VITALS: BP 111/56; PULSE 74; RESP 18; TEMP 36.6; O2SAT 94
[2020-02-06 11:59] LABS: Glucose Point of Care 189 mg/dL (70-110)
--- NOTE | 2020-02-06 13:00 | PM.DCS ---
Discharge Providers Date of Admission: 02/03/20 14:08 Date of Discharge: February 06, 2020 Attending Provider at Admission: Eliseo Dyer MD Attending Provider at Discharge: William Mirza MD Primary Care Provider: TAHIR Johsi Diagnoses at Discharge Discharge Diagnosis (1) Critical ischemia of lower extremity: Status: Acute Problem details: Improved following thrombectomy (2) Atrial fibrillation: Status: Acute Problem details: Started on amiodarone Reason for Visit Reason for Visit: Reason For Visit: r lower extremity aterial occulusion per dr mendieta Hospital Course Discharge Summary: Triston is a 74-year-old white male who presented to the hospital with pain and ischemia to his left lower extremity. He was placed on heparin. Cardiology was consulted, and an angiogram was performed. This demonstrated thrombus right distal superficial femoral artery. Procedure eventually had to be terminated, and vascular surgery was consulted. On February 03 vascular surgery performed thrombectomy from the right lower extremity. Following this the patient had improvement of capillary refill, and a modest biphasic Doppler signal. He did have right lower extremity edema at discharge, but from my understanding this was improved from previous. It was thought he could be discharged home on February 05 as he showed continued improvement. While in the hospital he did have some issues with atrial fibrillation and was transitioned to amiodarone under the direction of cardiology as well as addition of [place]. Physical Exam Narrative: EXAM NARRATIVE: No apparent distress Cardiovascular regular rate and rhythm Lungs clear Abdomen is soft with positive bowel sounds Bilateral groin catheterization sites demonstrated no evidence of significant hematoma Extremities no cyanosis clubbing. Right lower extremity with brisk capillary refill, some edema and erythema. Urinary Catheter Management^: Abreu: Cath Placed During This Visit: yes Reason for Continuing Indwelling Catheter: Accurate Measurement of Urinary Output in Critically Ill Patients Urinary Catheter Date of Insertion: 02/04/20 Urinary Catheter Time of Insertion: 16:00 Discharge Data Data Completed and Pending: Completed Studies During Hospitalization Category Date Time Status DIAGNOSTIC IMAGING MANAGER request for service Routin e Exams 02/04/20 12:46 Completed Pending at discharge Category Date Time Status Blood Culture Rou carlos Lab 02/03/20 17:30 Results Comprehensive Met abolic Panel AM LA BS Lab 02/07/20 04:00 Ordered Comprehensive Met abolic Panel AM LA BS Lab 02/08/20 04:00 Ordered Pathology: Surgic al [PTH] Routine Pth 02/04/20 17:19 Ordered Labs from last 24 hours 02/06/20 02/06/20 02/06/20 11:26 06:23 04:50 WBC RBC Hgb Hct MCV MCH MCHC RDW Plt Count MPV Neut % (Auto) Lymph % (Auto) [place] % (Auto) Eos % (Auto) Baso % (Auto) Neut # (Auto) Lymph # (Auto) [place] # (Auto) Eos # (Auto) Baso # (Auto) Nucleated RBC % (a uto) Nucleated RBCs # APTT Sodium Potassium Chloride Carbon Dioxide Anion Gap BUN Creatinine Glucose POC Glucose 189 154 Calcium Phosphorus 3.7 Magnesium 1.8 Total Bilirubin AST ALT Alkaline Phosphata se Total Protein Albumin Globulin 02/06/20 02/06/20 02/05/20 04:50 04:50 20:22 WBC 12.8 H RBC 3.54 L Hgb 10.9 L Hct 32.6 L MCV 92.1 MCH 30.8 MCHC 33.4 RDW 12.7 Plt Count 234 MPV 10.5 H Neut % (Auto) 71.5 Lymph % (Auto) 14.3 [place] % (Auto) 11.8 Eos % (Auto) 1.7 Baso % (Auto) 0.4 Neut # (Auto) 9.2 H Lymph # (Auto) 1.8 [place] # (Auto) 1.5 H Eos # (Auto) 0.2 Baso # (Auto) 0.1 Nucleated RBC % (a uto) 0 Nucleated RBCs # 0.0 APTT Sodium 132 L Potassium 3.9 Chloride 98 Carbon Dioxide 23 Anion Gap 14.9 BUN 14 Creatinine 0.9 Glucose 144 H POC Glucose 196 Calcium 8.9 Phosphorus Magnesium Total Bilirubin 0.7 AST 12 ALT < 5 Alkaline Phosphata se 75 Total Protein 5.8 L Albumin 3.2 L Globulin 2.6 02/05/20 02/05/20 16:41 14:09 WBC RBC Hgb Hct MCV MCH MCHC RDW Plt Count MPV Neut % (Auto) Lymph % (Auto) [place] % (Auto) Eos % (Auto) Baso % (Auto) Neut # (Auto) Lymph # (Auto) [place] # (Auto) Eos # (Auto) Baso # (Auto) Nucleated RBC % (a uto) Nucleated RBCs # APTT 45.9 H Sodium Potassium Chloride Carbon Dioxide Anion Gap BUN Creatinine Glucose POC Glucose 136 Calcium Phosphorus Magnesium Total Bilirubin AST ALT Alkaline Phosphata se Total Protein Albumin Globulin Vitals: Last Vital Signs Temp 97.9 F 02/06/20 11:28 Pulse 74 02/06/20 11:28 Resp 18 02/06/20 11:28 BP 111/56 02/06/20 11:28 Pulse Ox 94 02/06/20 11:28 Discharge Plan Discharge Patient Disposition: Home Health Service Condition: Stable Prescriptions: New lisinopril 20 mg Tablet 20 mg PO BID Qty: 60 RF: 2 pantoprazole 40 mg Tablet,Delayed Release (Dr/Ec) 40 mg PO DAILY Qty: 30 RF: 3 amiodarone [Pacerone] 200 mg Tablet 400 mg PO DAILY Qty: 30 RF: 2 clopidogrel 75 mg Tablet 75 mg PO DAILY Qty: 30 RF: 3 atorvastatin 40 mg Tablet 40 mg PO DAILY Qty: 30 RF: 3 Eliquis 5 mg Tablet 5 mg PO BID Qty: 60 RF: 3 Continued metoprolol tartrate 50 mg tablet 50 mg PO BID RF: 0 simvastatin 20 mg tablet 20 mg PO QDAY RF: 0 metformin 500 mg tablet 500 mg PO BID RF: 0 cephalexin [Keflex] 500 mg capsule 500 mg PO Q8H Qty: 30 RF: 0 tramadol [Ultram] 50 mg tablet 50 mg PO Q6H PRN (Reason: pain, moderate) Qty: 10 RF: 0 vitamin E 1 cap PO DAILY RF: 0 Discontinued lisinopril 30 mg tablet 30 mg PO BID RF: 0 Fish Oil 1 cap PO DAILY RF: 0 Discharge Orders: Discharge Order (Routine); Ordered 02/06/20 Ordered By: Lauren Wells Referrals: Abran Pratt MD [Physician] - 7-10 days Eulalia Murray FNP [Primary Care Provider] - 4-7 days Donaldo Bowie MD [Physician] - 7-10 days Discharge Diet: Diabetic Discharge Activity: Increase activity as tolerated Patient Instructions: Peripheral Vascular Angioplasty (DC) Activity Restrictions/Additional Instructions: May resume metformin tomorrow. Home health on discharge Medications as directed. Discharge Attestations Time Spent in Discharge Care*: greater than 30 min Quality Metrics Clinical Quality Measures During this hospital stay, did patient experience: None Coding Level of Care Code Acute Shoe Laster for g Fwd Diagnoses Critical ischemia of lower extremity I99.8 Atrial fibrillation I48.91
[2020-02-06 13:52] VITALS: BP 111/56; PULSE 74; RESP 18; TEMP 36.6; O2SAT 94
--- NOTE | 2020-02-06 19:08 | P.PN_ITS ---
Subjective Subjective: Interval history: Patient is sitting in the chair ready to go home, Right foot looks good, warm to touch. Good dopplerable anterior and posterior tibial pulse. Groin wound also looks good no hematoma Medications: Reviewed: Yes Medication Review Details: Postop day #2 status post thrombectomy right lower extremity. Surgical dressing was changed today. Incision is clean, dry, and intact. No apparent hematoma. He is currently on Eliquis. He has a modest biphasic Doppler signal in the right DP and a light intermittently biphasic signal in the right posterior tibial. He maintains hyperemia of the distal forefoot, which is concerning, though may be reactive hy peremia. We have been utilizing nitroglycerin on the dorsum of the foot. Vitals/I&O/Wt Last Vital Signs Temp 97.9 F 02/06/20 13:52 Pulse 74 02/06/20 13:52 Resp 18 02/06/20 13:52 BP 111/56 02/06/20 13:52 Pulse Ox 94 02/06/20 13:52 02/06/20 02/06/20 02/06/20 06:59 14:59 22:59 Intake Total 240 / 240 Output Total 300 / 300 Balance -60 / -60 Physical Exam Narrative: EXAM NARRATIVE: GENERAL: Patient is alert, awake and oriented x3. Mild distress NECK: No jugular vein distension. HEENT: No cyanosis. No icterus. No pallor. HEART: Regular S1 and S2. No murmur, rub or gallop. LUNGS: Clear to auscultate bilaterally. ABDOMEN: Soft, midepigastric tenderness and nondistended. Positive bowel sounds. No guarding, rebound or tenderness. CENTRAL NERVOUS SYSTEM: Grossly nonfocal. EXTREMITIES: Lower extremities with 1+ edema right leg, right foot warm moist pinkish, dopplerable Good anterior and posterior tibial pulse Urinary Catheter Management^: Abreu: Cath Placed During This Visit: yes Reason for Continuing Indwelling Catheter: Accurate Measurement of Urinary Output in Critically Ill Patients Urinary Catheter Date of Insertion: 02/04/20 Urinary Catheter Time of Insertion: 16:00 Data : 02/06/20 04:50 02/06/20 04:50 A&P Assessment and plan (1) Critical ischemia of lower extremity: Patient is doing fine from vascular perspective. He has good pulse in the right foot both dorsalis pedis and posterior tibial. He is happy with the result. He is not in pain. Left groin wound looks good as well. Continue anticoagulation. He is going to follow-up with Dr. Pratt. He is going to follow-up with Deborah Hummel cardiology nurse that patient one week as well. Status: Acute Code(s): I99.8 - Other disorder of circulatory system (2) Atrial fibrillation: Rate controlled on Eliquis. We will discharge him on amiodarone he is going to take amiodarone 400 mg once a day for next 1 week followed by 200 mg once a day. Advised to follow-up with Deborah Hummel and Dr. Pratt. Continue Plavix we will stop aspirin. Status: Acute Code(s): I48.91 - Unspecified atrial fibrillation Additional A&P Information Heparin has improved the situation. We will stop the heparin at noon and perform lower extremity angiography around 1:00 this afternoon. I made him n.p.o. after breakfast this morning. Attestations Medical Necessity Statement*: Patient can be discharged home Coding Level of Care Code Established Pt Acute Tire Maker for [facility] Fwd Patient Type Established History Expanded Problem Focused Exam Expanded Problem Focused Medical Decision Making Moderate Complexity Diagnoses Critical ischemia of lower extremity I99.8 Atrial fibrillation I48.91
== END 2020-02-06 14:29 | disposition home or self-care (01) | DRG 254 ==
LOC: ER 17:01 → MEDSURG 17:39 → ICU 02-04 16:18 → CSU 02-05 14:02
PROVIDERS: Internal Medicine Cardiovascular Disease; Thoracic Surgery (Cardiothoracic Vascular Surgery); Admitting Provider Family Medicine; Emergency Provider Family Medicine; Family Provider Nurse Practitioner Family; PCP Nurse Practitioner Family; Visit Provider Internal Medicine
PROC: B4001ZZ Plain Radiography of Abdominal Aorta using Low Osmolar Contrast (ICD-10-PCS; principal; 2020-02-04 13:00)
PROC: B4001ZZ Plain Radiography of Abdominal Aorta using Low Osmolar Contrast (ICD-10-PCS; 2020-02-04 13:00)
DX: E11.59 Type 2 diabetes mellitus with other circulatory complications (principal); I99.8 Other disorder of circulatory system; I48.91 Unspecified atrial fibrillation; I73.9 Peripheral vascular disease, unspecified; I25.10 Atherosclerotic heart disease of native coronary artery without angina pectoris; E78.2 Mixed hyperlipidemia; I10 Essential (primary) hypertension; Z95.5 Presence of coronary angioplasty implant and graft; F03.90 Unspecified dementia, unspecified severity, without behavioral disturbance, psychotic disturbance, mood disturbance, and anxiety; F32.9 Major depressive disorder, single episode, unspecified; I74.3 Embolism and thrombosis of arteries of the lower extremities; Z53.8 Procedure and treatment not carried out for other reasons; Z79.84 Long term (current) use of oral hypoglycemic drugs; Z79.811 Long term (current) use of aromatase inhibitors; Z79.899 Other long term (current) drug therapy
CPT/HCPCS: 12345; 36415; 36416; 37184; 37224; 51702; 75625; 75710; 80048; 80053; 80061; 82550; 82962; 83036; 83735; 84100; 84443; 85025; 85610; 85730; 87040; 88305; 93005; 93922; 93926; 94664; 96372; 96374; 96375; 99283; C1725; C1769; C1887; C1894; J0282; J0330; J0690; J1644; J1815; J1885; J2001; J2060; J2250; J2270; J2405; J2704; J3010; J3370; J3490; J7030; J7040; J7060; Q0163; Q9967

== ENCOUNTER 2020-07-18 10:34 | Outpatient (CLI) | payer MEDICARE, MEDICAID, SELFPAY ==
--- NOTE | 2020-07-18 10:45 | USCV_ITS ---
NathanTriston Age: 74 Gender: M : 1945 Exam Date: 07/18/2020 10:48 Ordering Phys: Eulalia Murray TOE PUNCHER Technologist: Oksana Allen [place]am [place] [facility] [place]: Pain in foot HISTORY: Lower extremity pain. PROCEDURES: Comparison: none available. Venous duplex imaging was performed in only the right lower extremity. The following venous structures were evaluated: common femoral vein, profunda vein, proximal portion of the greater saphenous vein, superficial femoral vein, and the popliteal vein. In addition, the posterior tibial and peroneal trunk were evaluated. Serial compression, augmentation maneuvers, and spectral Doppler flow evaluation were performed. FINDINGS: Normal 2-D Doppler and augmentation and compressibility throughout the lower extremity venous structures. Additional imaging through the proximal calf veins also reveals no thrombus. Limited evaluation of the greater saphenous vein is patent with no thrombus. CONCLUSIONS No DVT right lower extremity. Dr. Danya Monroe DO (Electronically Signed) Final Date: 18 July 2020 11:28 S
== END 2020-07-18 10:35 | disposition home or self-care (01) ==
LOC: RAD 10:40
PROVIDERS: PCP Nurse Practitioner Family; Visit Provider Nurse Practitioner Family
DX: M79.604 Pain in right leg (principal)
CPT/HCPCS: 93971

== ENCOUNTER → 2020-08-14 11:40 | Outpatient (BNVA) | payer MEDICARE, MEDICAID, SELFPAY | PROVIDERS: PCP Nurse Practitioner Family; Visit Provider Nurse Practitioner Family | DX: Z79.01 Long term (current) use of anticoagulants (principal); E11.9 Type 2 diabetes mellitus without complications; M79.673 Pain in unspecified foot | CPT/HCPCS: 83036; 85025 ==

== ENCOUNTER → 2022-01-28 13:16 | Outpatient (BNVA) | payer MEDICARE, MEDICAID, SELFPAY | PROVIDERS: PCP Nurse Practitioner Family; Visit Provider Nurse Practitioner Family | DX: D64.9 Anemia, unspecified (principal); I48.19 Other persistent atrial fibrillation | CPT/HCPCS: 85025 ==

== ENCOUNTER → 2022-02-14 11:38 | Outpatient (BNVA) | payer MEDICARE, MEDICAID, SELFPAY | PROVIDERS: PCP Nurse Practitioner Family; Visit Provider Nurse Practitioner Family | DX: D64.9 Anemia, unspecified (principal); I48.19 Other persistent atrial fibrillation | CPT/HCPCS: 80053; 82607; 83036; 83540; 83550; 85025 ==

== ENCOUNTER → 2022-02-27 10:39 | Outpatient (BNVA) | payer MEDICARE, MEDICAID, SELFPAY | PROVIDERS: PCP Nurse Practitioner Family; Visit Provider Nurse Practitioner Family | DX: D64.9 Anemia, unspecified (principal) | CPT/HCPCS: 85025 ==

== ENCOUNTER → 2022-03-21 11:06 | Outpatient (BNVA) | payer MEDICARE, MEDICAID, SELFPAY | PROVIDERS: PCP Nurse Practitioner Family; Visit Provider Nurse Practitioner Family | DX: D64.9 Anemia, unspecified (principal); I10 Essential (primary) hypertension; D50.9 Iron deficiency anemia, unspecified; I48.19 Other persistent atrial fibrillation | CPT/HCPCS: 80053; 83540; 83550; 85007; 85027 ==

== ENCOUNTER → 2022-05-02 10:57 | Outpatient (BNVA) | payer MEDICARE, MEDICAID, SELFPAY | PROVIDERS: PCP Nurse Practitioner Family; Visit Provider Nurse Practitioner Family | DX: E11.9 Type 2 diabetes mellitus without complications (principal); D50.9 Iron deficiency anemia, unspecified; I10 Essential (primary) hypertension | CPT/HCPCS: 80053; 83036; 83540; 85025 ==

== ENCOUNTER → 2022-06-06 11:13 | Outpatient (BNVA) | payer MEDICARE, MEDICAID, SELFPAY | PROVIDERS: PCP Nurse Practitioner Family; Visit Provider Nurse Practitioner Family | DX: D50.9 Iron deficiency anemia, unspecified (principal); D64.9 Anemia, unspecified; E11.9 Type 2 diabetes mellitus without complications; E78.2 Mixed hyperlipidemia; I25.10 Atherosclerotic heart disease of native coronary artery without angina pectoris; I73.9 Peripheral vascular disease, unspecified | CPT/HCPCS: 80053; 80061; 83540; 85025 ==

== ENCOUNTER → 2022-07-04 11:11 | Outpatient (BNVA) | payer MEDICARE, MEDICAID, SELFPAY | PROVIDERS: PCP Nurse Practitioner Family; Visit Provider Nurse Practitioner Family | DX: E11.9 Type 2 diabetes mellitus without complications (principal); E78.2 Mixed hyperlipidemia; I73.9 Peripheral vascular disease, unspecified; Z95.5 Presence of coronary angioplasty implant and graft | CPT/HCPCS: 80053; 83036; 83540; 85025 ==

== ENCOUNTER 2022-07-23 14:53 | Emergency (ER) | payer MEDICARE, MEDICAID, SELFPAY ==
[2022-07-23 14:59] VITALS: BP 136/61; PULSE 54; RESP 18; TEMP 36.3; O2SAT 94
--- NOTE | 2022-07-23 15:56 | ED_ITS ---
HPI - Fall General: Chief Complaint: Fall Stated Complaint: fall/ weak/ confusion Time Seen by Provider: 07/23/22 14:54 History of Present Illness: 76-year-old male presenting today with ground- level fall. Patient notes he was cooking in the kitchen. When his legs gave out. He fell striking his right arm. Did not strike his head. He notes that his legs are frequently weaker and now that he is 76 years old. He denies any acute changes. He denies headache, chest pain, shortness of breath, abdominal pain, dysuria, polyuria, diarrhea. Numbness tingling or unilateral weakness. Review of Systems General: Reports: 10 or more systems reviewed and unremarkable except in HPI and below PFSH ED PFSH: Medical History Hyperlipemia, mixed Peripheral arterial disease Tobacco abuse, in remission Type 2 diabetes mellitus, without long-term current use of insulin Surgical History History of heart artery stent Social History Current occupation: disabled Physical Exam Const: COMMON NORMALS: no acute distress, patient oriented x3 and alert GENERAL APPEARANCE: cooperative ORIENTATION/CONSCIOUSNESS: Yes awake, Yes oriented to person, Yes oriented to place and Yes oriented to time HENMT: COMMON NORMALS: normocephalic, atraumatic, external ears normal, Normal external nose present and moist oral mucous membranes HEAD & SCALP: normal to inspection, normocephalic and atraumatic NOSE: Normal external nose present GENERAL EAR: hearing grossly impaired EXTERNAL EAR: Yes external ears normal Eye: COMMON NORMALS: Equal, round and reactive pupils present, EOMs intact bilaterally, conjunctivae normal and no scleral icterus GENERAL EYE: appearance normal, both eyes and all related structures EYELID: eyelids normal CONJUNCTIVA: Yes conjunctivae normal SCLERA: sclerae normal PUPIL: Yes Equal, round and reactive pupils present Neck/C-Spine: COMMON NORMALS: full ROM, supple and no JVD GENERAL: Yes normal visual inspection Lymph: LYMPHATIC: no lymphadenopathy noted and no lymphedema noted Chest: COMMONS NORMALS: normal inspection of the chest Resp: COMMON NORMALS: normal respiratory effort, No retractions and No use of accessory muscles Cardio: COMMON NORMALS: no JVD, regular rate and regular rhythm RATE: regular rate RHYTHM: regular rhythm GI: COMMON NORMALS: Normal to inspection, nondistended, normoactive bowel sounds present : COMMON NORMALS: Yes no CVA tenderness BLADDER/KIDNEY EXAM: Yes no CVA tenderness Back/Pelvis: COMMON NORMALS: no CVA tenderness and thoracic and lumbar spine normal to inspection Extremity: COMMON NORMALS: normal to inspection, full ROM and capillary refill normal GENERAL: Yes normal exam except as noted Neuro: COMMON NORMALS: patient oriented x3, CN's II-XII intact bilaterally, moves all extremities, no focal motor deficits, no sensory deficits noted and gait normal SENSORIUM/ORIENTATION: Yes alert, Yes oriented to person, Yes oriented to place and Yes oriented to time Psych: COMMON NORMALS: mental status grossly normal, Normal thought process present, cooperative and normal affect THOUGHT PROCESS: Normal thought process present Skin: COMMON NORMALS: no rashes or lesions noted; negative for no wounds (Abrasion noted to right upper extremity. Nontender to palpation.) GENERAL SKIN EXAM: no rashes or lesions noted Course Vital Signs: Vital signs: Vital Signs Temperature 97.4 F L 07/23/22 14:59 Pulse Rate 56 L 07/23/22 16:39 Respiratory Rate 17 07/23/22 16:39 Blood Pressure 132/64 07/23/22 16:39 Pulse Oximetry 90 07/23/22 16:39 Oxygen Delivery Me thod 07/23/22 16:39 MDM - Fall Medical Decision Making 76-year-old male presenting today with ground-level fall. No significant traumatic wounds noted. Minor abrasions to right upper extremity without need for repair. Tdap updated. CMP with evidence of acute renal insufficiency likely related to dehydration. Patient was bolused with normal saline. Recommended aggressive oral hydration. Discussed admisison vs. discharge. Patient preference is D/c to home. Return precautions were given. Lab Data : 07/23/22 16:20 07/23/22 16:20 Laboratory Results WBC 15.2 10^3/uL (4.0-10.0) H 07/23/22 16:20 RBC 5.30 10^6/uL (4.1-5.3) 07/23/22 16:20 Hgb 16.1 g/dL (11.7-16.6) 07/23/22 16:20 Hct 47.8 % (42.0-52.0) 07/23/22 16:20 MCV 90.2 fl (80-94) 07/23/22 16:20 MCH 30.4 pg (28.0-34.0) 07/23/22 16:20 MCHC 33.7 g/dL (30.0-36.0) 07/23/22 16:20 RDW 14.6 % (12.1-15.1) 07/23/22 16:20 Plt Count 224 10^3/cmm (130-400) 07/23/22 16:20 MPV 12.2 fL (7.4-10.4) H 07/23/22 16:20 Neut % (Auto) 78.0 % 07/23/22 16:20 Lymph % (Auto) 7.1 % 07/23/22 16:20 Butts % (Auto) 13.2 % 07/23/22 16:20 Eos % (Auto) 0.7 % 07/23/22 16:20 Baso % (Auto) 0.3 % 07/23/22 16:20 Neut # (Auto) 11.83 10^3/uL (1.8-7.7) H 07/23/22 16:20 Lymph # (Auto) 1.1 10^3/uL (0.8-4.8) 07/23/22 16:20 Butts # (Auto) 2.0 10^3/uL (0.2-0.9) H 07/23/22 16:20 Eos # (Auto) 0.1 10^3/uL (0.0-0.8) 07/23/22 16:20 Baso # (Auto) 0.0 10^3/uL (0.0-0.1) 07/23/22 16:20 Nucleated RBC % (auto) 0 % 07/23/22 16:20 Nucleated RBCs # 0.0 /100WBC 07/23/22 16:20 Sodium 135 mmol/L (136-145) L 07/23/22 16:20 Potassium 4.6 mmol/L (3.5-5.1) 07/23/22 16:20 Chloride 97 mmol/L (98-107) L 07/23/22 16:20 Carbon Dioxide 25 mmol/L (22-29) 07/23/22 16:20 Anion Gap 17.6 (5-19) 07/23/22 16:20 BUN 61 mg/dL (8-23) H 07/23/22 16:20 Creatinine 1.7 mg/dL (0.7-1.2) H 07/23/22 16:20 GFR Calculation Not Reportable 07/23/22 16:20 Glucose 156 mg/dL (65-115) H 07/23/22 16:20 Calculated Osmolality 300 mOsm/kg (285-295) H 07/23/22 16:20 Calcium 8.7 mg/dL (8.5-10.5) 07/23/22 16:20 Total Bilirubin 0.9 mg/dL (0.15-1.2) 07/23/22 16:20 AST 33 U/L (0-40) 07/23/22 16:20 ALT 46 U/L (0-41) H 07/23/22 16:20 Alkaline Phosphatase 100 U/L (40-130) 07/23/22 16:20 Total Protein 6.8 g/dL (6.6-8.7) 07/23/22 16:20 Albumin 4.0 g/dL (3.5-5.2) 07/23/22 16:20 Globulin 2.8 g/dL (1.3-4.6) 07/23/22 16:20 TSH 2.95 uIU/mL (0.27-4.20) 07/23/22 16:20 Urine Color Yellow (Yellow) 07/23/22 17:55 Urine Appearance Clear (CLEAR) 07/23/22 17:55 Urine pH 5 (5-7) 07/23/22 17:55 Ur Specific [place] 1.020 (1.005-1.030) 07/23/22 17:55 Urine Protein Trace (Negative) 07/23/22 17:55 Urine Glucose (UA) Norm (Normal) 07/23/22 17:55 Urine Ketones 1+ (Negative) H 07/23/22 17:55 Urine Blood Trace (Negative) H 07/23/22 17:55 Urine Nitrate Negative (Negative) 07/23/22 17:55 Urine Bilirubin Neg (Negative) 07/23/22 17:55 Urine Urobilinogen 4 mg/dL (Negative) H 07/23/22 17:55 Ur Leukocyte Esterase Negative (Negative) 07/23/22 17:55 Urine RBC 0-4 /hpf (0-2) H 07/23/22 17:55 Urine WBC 0-4 /hpf (0-5) H 07/23/22 17:55 Ur Squamous Epith Cells 0-4 /hpf (0-5) H 07/23/22 17:55 Amorphous Sediment Not Reportable 07/23/22 17:55 Urine Bacteria None /hpf (NONE) 07/23/22 17:55 Discharge Plan Discharge Patient Disposition: Home Clinical Impression: Dehydration, Acute kidney injury Condition: Stable Prescriptions: No Action ferrous sulfate 325 mg (65 mg iron) tablet,delayed release (DR/EC) 325 mg PO BID Qty: 90 1RF lisinopril 20 mg tablet 20 mg PO DAILY Qty: 90 1RF amiodarone 200 mg tablet 200 mg PO DAILY clopidogrel 75 mg tablet 75 mg PO DAILY pantoprazole 40 mg tablet,delayed release (DR/EC) 40 mg PO DAILY metoprolol tartrate 25 mg tablet 12.5 mg PO BID Discharge Orders: Discharge ED (Routine); Ordered 07/23/22 Ordered By: Derrick Jean Baptiste Referrals: Eulalia Murray FNP [Primary Care Provider] - Discharge Diet: Advance as tolerated Discharge Activity: Resume usual activity Patient Instructions: Dehydration (ED) Coding Level of Care Code ED Advertising Account Representative for [employer] Fwd Exam Comprehensive
[2022-07-23 16:35] LABS: Basophils % 0.3 %; Eosinophils # 0.1 10^3/uL (0.0-0.8); Eosinophils % 0.7 %; Hematocrit 47.8 % (42.0-52.0); Hemoglobin 16.1 g/dL (11.7-16.6); Lymphocytes # 1.1 10^3/uL (0.8-4.8); Lymphocytes % 7.1 %; Mean Corpuscular HGB Conc 33.7 g/dL (30.0-36.0); Mean Corpuscular Hemoglobin 30.4 pg (28.0-34.0); Mean Corpuscular Volume 90.2 fl (80-94); Mean Platelet Volume 12.2 fL (7.4-10.4); Monocytes % 13.2 %; Neutrophils # 11.83 10^3/uL (1.8-7.7); Nucleated Red Blood Cells % 0 %; Platelet Count 224 10^3/cmm (130-400); Red Cell Distribution Width 14.6 % (12.1-15.1); White Blood Count 15.2 10^3/uL (4.0-10.0)
[2022-07-23] MEDS: tetanus-dipt-pertussis 0.5 mL SDV IM (16:36)
[2022-07-23] MEDS: sodium chloride 0.9% 1,000 ML 999 ML IV (16:36)
[2022-07-23 16:39] VITALS: BP 132/64; PULSE 56; RESP 17; O2SAT 90
--- NOTE | 2022-07-23 16:52 | PC.PHAR ---
-pt states unsure of the names of his medications states a lady rima hedrick takes care of his medications and is unsure of phone number-medications entered are meds the pharmacy has filled recently-notes are made in the pharmacy comments
[2022-07-23 17:11] LABS: Alanine Aminotransferase 46 U/L (0-41); Alkaline Phosphatase 100 U/L (40-130); Blood Urea Nitrogen 61 mg/dL (8-23); Calcium 8.7 mg/dL (8.5-10.5); Carbon Dioxide 25 mmol/L (22-29); Chloride 97 mmol/L (98-107); Globulin 2.8 g/dL (1.3-4.6); Glucose 156 mg/dL (65-115); Osmolality Calculated 300 mOsm/kg (285-295); Sodium 135 mmol/L (136-145); Thyroid Stimulating Hormone 2.95 uIU/mL (0.27-4.20); Total Bilirubin 0.9 mg/dL (0.15-1.2); Total Protein 6.8 g/dL (6.6-8.7)
[2022-07-23 17:18] LABS: Anion Gap 17.6 (5-19); Aspartate Amino Transferase 33 U/L (0-40); Potassium 4.6 mmol/L (3.5-5.1)
[2022-07-23 17:21] LABS: Slide Review Slide Review Perform
--- NOTE | 2022-07-23 17:56 | ECG_ITS ---
[facility] Test Date: 2022-07-23 Pat Name: Triston Evans Department: Room: Gender: Male Technical Sales Representatives: : 1945 Requested By: Derrick Jean Baptiste Order Number: [id number] Mk MD: Kelby Calloway M.D. Measurements Intervals [place] Rate: 54 P: 44 VT: 231 QRS: -27 QRSD: 113 T: 59 QT: 443 QTc: 421 Interpretive Statements SINUS BRADYCARDIA WITH SINUS ARRHYTHMIA WITH FIRST DEGREE AV BLOCK BORDERLINE LEFT AXIS DEVIATION [QRS AXIS < -20] MODERATE INTRAVENTRICULAR CONDUCTION DELAY [110+ ms QRS DURATION] NONSPECIFIC T-WAVE ABNORMALITY Compared to ECG 02/04/2020 17:42:18 First degree AV block now present Intraventricular conduction delay now present T-wave abnormality now present Atrial fibrillation no longer present Ventricular premature complex(es) no longer present Aberrant conduction of supraventricular beat(s) no longer present Electronically Signed On 07-24-2022 0:17:12 CDT by Kelby Calloway M.D. [id number]
[2022-07-23 18:47] LABS: Add Urine Microscopic? YES; Bilirubin Urine Neg (Negative); Blood Urine Trace (Negative); Glucose Urine UA Norm (Normal); Ketones Urine 1+ (Negative); Leukocyte Esterase Urine Negative (Negative); Nitrate Urine Negative (Negative); Protein Urine Trace (Negative); RBC Urine 0-4 /hpf (0-2); Squamous Epithelial Cell Urine 0-4 /hpf (0-5); Urine Appearance Clear (CLEAR); Urine Color Yellow (Yellow); Urobilinogen Urine 4 mg/dL (Negative); WBC Urine 0-4 /hpf (0-5); pH Urine 5 (5-7)
[2022-07-23 18:48] LABS: Add Urine Culture? No
[2022-07-23 19:30] VITALS: BP 137/101; PULSE 65; RESP 18; TEMP 36.3; O2SAT 95
--- NOTE | 2022-07-23 20:15 | PC.NURSE ---
While attempting to find patient a ride home, nurse was unsuccessful in finding patient's family members numbers. Pt has two friends listed in his contacts; however, he states they have moved and those numbers are no longer valid. He lives alone and states he does not have any numbers to call but that he will pay for a ride to whomever will give him one. Medicaid/Medicare ride considered; however, patient is adament to leave at this time and does not want to wait until tomorrow to get a Medicare ride. Patient was not able to tell nurse his address and city at 1940 and I was not comfortable initially sending him home via [employer]. Patient was still adament he was not going to stay and wanted to pay for a ride. Multiple attempts at contacting others listed on paperwork from [facility] clinics were made but with no success. Patient became more lucid in thought and was able to tell nurse his address and that he was wanting to go home. Dr. Jean Baptiste was notified of patient's ride situation and his mentation before and now - and due to patient not having a guardian and living at home alone still - he is now alert to person and place and knows his address - we cannot keep him here if he does not wish to stay. [employer] was called and patient was given his address on post-it to give to snaker tractor driver, and discharge instructions. Pt was very thankful and ready to go home. Denied any pain.
--- NOTE | 2022-07-23 22:53 | PC.NURSE ---
Patient fell at 1930 in his room with Keith Drake CNA at bedside attempting to assist patient. Pt denies any pain or hitting of his head. Vitals taken and recorded. Patient has open abrasions to his arms from fall at home. Pt fell at home due to weakness and confusion. He does not have any family on file to contact and the family friends to contact are no longer at that number. Patient is alert and oriented to person at this time but that has been norm for him throughout shift per report from SHLOMO Bell. Dr. Jean Baptiste notified at 1940 of fall and vitals - no further orders or monitoring at this time. Patient awaiting a ride setup for discharge. Yazan Atwood RNpress supervisor notified and incident report filed [id number].
[2022-07-23 23:02] VITALS: BP 138/90; PULSE 70; RESP 18; TEMP 36.3; O2SAT 95
== END 2022-07-23 20:45 | disposition home or self-care (01) ==
PROVIDERS: Emergency Provider Emergency Medicine; PCP Nurse Practitioner Family
DX: E86.0 Dehydration (principal); N17.9 Acute kidney failure, unspecified; E78.2 Mixed hyperlipidemia; E11.9 Type 2 diabetes mellitus without complications; Z23 Encounter for immunization
CPT/HCPCS: 80053; 81001; 84443; 85025; 90471; 90715; 93005; 99284; J7030